=== PATIENT | female | born 1985 | race Caucasian/White ===

== ENCOUNTER 2016-08-24 08:12 | Emergency (ER) | payer BC ==
--- NOTE | 2016-08-24 11:20 | RAD ---
Indication: Early with uncertain dates. Potential very light menses in June and July. Comparison: No relevant prior exams available on the [facility] for comparison. Technique: Transabdominal and transvaginal obstetrical ultrasound. Report: Single intrauterine gestation with mean gestational sac diameter of 0.99 cm corresponding to 5 weeks 5 days gestation. Solitary pole measuring 0.53 cm crown-rump length corresponding with 6 weeks 3 days gestation. Unremarkable 0.4 cm diameter yolk sac. movement and cardiac activity evident with heart rate equal to 120 bpm. No perigestational hemorrhage evident. No free fluid evident. 2.8 x 1.4 x 1.3 cm RIGHT ovary is unremarkable. 3.6 x 2.8 x 2.6 cm LEFT ovary is remarkable for a moderately well-circumscribed hypoechoic but not anechoic 2.2 x 1.9 x 1.7 cm lesion with peripheral vascularity most suspicious for a corpus luteum given the clinical context. No visualized extra ovarian adnexal region lesions evident. IMPRESSION: 1. Solitary grossly viable-appearing intrauterine gestation with ultrasound gestational age estimated at 6 weeks 1 day corresponding with AUA BRINDA of April 18, 2017. 2. Small probable corpus luteum at the LEFT ovary.
[2016-08-24 12:07] VITALS: BP 107/70
[2016-08-24 16:11] LABS: Hematocrit 42 % (35-47); Hemoglobin 13.8 g/dl (12.0-16.0); Mean Corpuscular HGB Conc 33 g/dl (31-36); Mean Corpuscular Hemoglobin 28 pg (27-31); Mean Corpuscular Volume 86 fL (80-97); Mean Platelet Volume 8 um3 (7.4-10.4); Red Blood Count 4.88 10^6/ul (4.0-5.4); Red Cell Distribution Width 14 % (10.5-15); White Blood Count 10.8 10^3/ul (3.5-10.8)
[2016-08-24 16:54] LABS: Albumin 4.8 g/dL (3.2-5.2); BUN/Creatinine Ratio 12.5 (8-20); Calcium 9.9 mg/dL (8.6-10.3); EGFR African American 141.1 (>60); EGFR Non-African American 109.7 (>60); Globulin 2.3 g/dL (2-4); Potassium 4.4 mmol/L (3.5-5.0); Total Bilirubin 0.8 mg/dL (0.2-1.0); Total Protein 7.1 g/dL (6.4-8.9)
[2016-08-24 17:40] LABS: Manual Entry Verification MD; Rapid HIV INT CONT QC Line Present; Rapid HIV Kit Lot# F308002
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
== END 2016-08-24 11:55 | disposition home or self-care (01) ==
LOC: UCEAST 08:12
DX: O26.891 Other specified pregnancy related conditions, first trimester (principal); Z3A.01 Less than 8 weeks gestation of pregnancy; M41.9 Scoliosis, unspecified; Z87.442 Personal history of urinary calculi
CPT/HCPCS: 36415; 76801; 80053; 81003; 84702; 85025; 86703; 86706; 86803; 87491; 87591; 99212; G0463

== ENCOUNTER 2016-08-28 11:04 | Emergency (ER) | payer BC ==
[2016-08-28 11:34] VITALS: BP 122/83
--- NOTE | 2016-08-28 11:52 | UC ---
Yasmeen Patino Alok, scribed for Jaya Okeefe MD on 08/28/16 at 1129 . - HPI Summary HPI Summary: 31F presents to [facility] with vaginal spotting three days ago as well as mid-back pain yesterday. Pt is 6 weeks 5 days GPA=1,0,0. Pt states she has not had any spotting today and states that her spotting 3 days ago was no heavy. Pt also notes lower abd cramping. Pt was last seen at [facility] 4 days ago where US was done in order to date . PMHx includes h/o kidney stones and scoliosis. Pt denies tobacco/ETOH. Pt has NKDA. - History of Current Complaint Stated Complaint: ,SPOTTING,BACK PAIN Time Seen by Provider: 08/28/16 11:22 Hx Obtained From: Patient Chief Complaint: Vaginal Bleeding Onset/Duration: Started Days Ago, Atraumatic, Resolved Timing: Lasting Hours Severity: Moderate Current Severity: Moderate Pain Intensity: 0 Location of Pain: Other: - Lower abd Character: Cramping Aggravating Factors: Nothing Alleviating Factors: Nothing Associated Signs and Symptoms: Positive: Back Pain, Vaginal Bleeding or Discharge - Assessment Hx Now: Yes Hx Hysterectomy: No - Allergies/Home Medications Allergies/Adverse Reactions: Allergies Allergy/AdvReac Type Severity Reaction Status Date / Time No Known Allergies Allergy Verified 08/28/16 11:28 Home Medications: Home Medications Multivit-Min W/Fe-FA [ and Iron] 1 tab PO DAILY 08/28/16 [ History Confirmed 08/28/16] PMH/Surg Hx/FS Hx/Imm Hx Endocrine/Hematology History: Denies: Hx Diabetes, Hx Thyroid Disease Cardiovascular History: Denies: Hx Hypertension Respiratory History: Denies: Hx Asthma, Hx Chronic Obstructive Pulmonary Disease (COPD) GI History: Denies: Hx Ulcer - Surgical History Surgery Procedure, Year, and Place: Stent placement. lithotripsy Infectious Disease History: Reports: History Other Infectious Disease - [place], lyme, HPV Denies: Hx Clostridium Difficile, Hx Hepatitis, Hx Human Immunodeficiency Virus (HIV), Hx of Known/Suspected MRSA, Hx Shingles, Hx Tuberculosis, Hx Known/ Suspected VRE, Hx Known/Suspected VRSA - Family History Known Family History: Positive: Diabetes, Other - [place]. Alzheimer's. Negative: Cardiac Disease - Social History Occupation: Employed Full-time Lives: With Family Alcohol Use: None Alcohol Amount: 2x's weekly Hx Substance Use: Yes Substance Use Type: Reports: Marijuana Substance Use Comment - Amount & Last Used: quit recently Hx Tobacco Use: No Smoking Status (MU): Never Smoked Tobacco Type: eCigarettes Have You Smoked in the Last Year: No Review of Systems Constitutional: Negative Gastrointestinal: Abdominal Pain Genitourinary: Other - vaginal spotting 3 days ago Musculoskeletal: Other: - back pain yesterday All Other Systems Reviewed And Are Negative: Yes Physical Exam - Physical Exam Triage Information Reviewed: Yes Vital Signs Reviewed: Yes Appearance: Positive: Well-Appearing, No Pain Distress Skin: Positive: Warm Head/Face: Positive: Normal Head/Face Inspection Eyes: Positive: EOMI ENT: Positive: Normal ENT inspection Respiratory/Lung Sounds: Positive: Clear to Auscultation, Breath Sounds Present Cardiovascular: Positive: Normal, RRR Abdomen Description: Positive: Nontender Musculoskeletal: Positive: Strength/ROM Intact Neurological: Positive: Normal, Sensory/Motor Intact, Alert, Oriented to Person Place, Time Psychiatric: Positive: Normal - Carlos Coma Scale Eye: 4 - Spontaneous Motor: 6 - Obeys Commands Verbal: 5 - Oriented Coma Scale Total: 15 Course/Dx - Course Course Of Treatment: DW Dr Santos and the patient is signing out AMA refusal of EMS transport for vaginal bleeding and painin pregancy. She says she is driving her self [place] [facility]. - Diagnoses Provider Diagnoses: , Bleeding - Provider Notifications Discussed Care Of Patient With: Dr. Santos (ED) @ 3266 - Discussed pt hx and AMA, and patient states she is going to ER by private car. Discharge - Discharge Plan Condition: Good Disposition: AGAINST MEDICAL ADVICE The documentation as recorded by the Yasmeen velasquez Alok accurately reflects the service I personally performed and the decisions made by me, Jaya Okeefe MD.
== END 2016-08-28 11:53 | disposition left against medical advice (07) ==
LOC: UCEAST 11:04
DX: O20.9 Hemorrhage in early pregnancy, unspecified (principal); Z3A.01 Less than 8 weeks gestation of pregnancy
CPT/HCPCS: 99212; G0463

== ENCOUNTER 2016-08-28 12:05 | Emergency (ER) | payer BC ==
[2016-08-28 14:41] LABS: Hematocrit 42 % (35-47); Mean Corpuscular HGB Conc 34 g/dl (31-36); Mean Corpuscular Hemoglobin 29 pg (27-31); Mean Corpuscular Volume 86 fL (80-97); Mean Platelet Volume 8 um3 (7.4-10.4); Red Blood Count 4.87 10^6/ul (4.0-5.4); Red Cell Distribution Width 14 % (10.5-15); White Blood Count 8.8 10^3/ul (3.5-10.8)
[2016-08-28 14:56] LABS: Albumin 4.4 g/dL (3.2-5.2); BUN/Creatinine Ratio 13.1 (8-20); Calcium 9.1 mg/dL (8.6-10.3); EGFR African American 149.1 (>60); Globulin 2.3 g/dL (2-4); Potassium 3.8 mmol/L (3.5-5.0); Total Bilirubin 0.5 mg/dL (0.2-1.0); Total Protein 6.7 g/dL (6.4-8.9)
[2016-08-28 15:04] LABS: Urine Bacteria 1+ (Absent); Urine Bilirubin Negative (Negative); Urine Glucose Negative (Negative); Urine Nitrite Negative (Negative)
--- NOTE | 2016-08-28 15:47 | RAD ---
Indication: Vaginal bleeding. . Real-time sonography of the was performed. There is a single intrauterine gestation with a crown-rump length of 9 mm. This corresponds to gestational age of 6 weeks 6 days. heart activity is noted at 129 bpm. Yolk sac is identified. Gestational sac size measures 11 mm. This corresponds to gestational age of 5 weeks 6 days. The composite gestational age is 6 weeks 3 days. Estimated date of delivery is April 20, 2017. There is an arcuate type uterus. Right ovary measures 2.9 x 1.2 x 1.7 cm. Left ovary measures 3.3 x 2.1 x 2.8 cm. Hypoechoic lesion in the left ovary measures 2.1 x 2.1 x 1.6 cm represent corpus luteum. IMPRESSION: Single intrauterine gestation with a gestational age of 6 weeks 3 days. Estimated date of delivery is April 20, 2017. There is an arcuate type endometrium and uterus noted. Likely Left corpus luteum measuring up to 2.1 cm.
[2016-08-28 16:37] VITALS: BP 112/57
--- NOTE | 2016-08-28 17:56 | ED ---
Matthew Patino Billy, scribed for Luisito Santos MD on 08/28/16 at 1426 . - HPI Summary HPI Summary: Patient is a 31 year-old female coming to [facility] for evaluation of several -related complaints. She states that 3 days ago, she felt lightheaded and near-syncopal. She also reports "spasms" in the right-side of her abdomen. She has had intermittent mid-back pain as well. Patient reports one episode of light vaginal spotting 2 days ago. She reports no breast tenderness today. A0. LMP 07/05/16. - History of Current Complaint Chief Complaint: EDOBProblems Stated Complaint: 6 WEEKS PREGRENT/SPOTTING Time Seen by Provider: 08/28/16 14:02 Hx Obtained From: Patient Chief Complaint: Pain, Vaginal Bleeding Onset/Duration: Started Days Ago Timing: Intermittent Severity: Moderate Current Severity: Moderate Location of Pain: Right Side Character: Other: - "spasms" Aggravating Factors: Nothing Alleviating Factors: Nothing Associated Signs and Symptoms: Positive: Back Pain, Vaginal Bleeding or Discharge - Assessment Hx Now: Yes Hx Hysterectomy: No - Allergies/Home Medications Allergies/Adverse Reactions: Allergies Allergy/AdvReac Type Severity Reaction Status Date / Time No Known Allergies Allergy Verified 08/28/16 11:28 PMH/Surg Hx/FS Hx/Imm Hx Endocrine/Hematology History: Denies: Hx Diabetes, Hx Thyroid Disease Cardiovascular History: Denies: Hx Hypertension Respiratory History: Denies: Hx Asthma, Hx Chronic Obstructive Pulmonary Disease (COPD) GI History: Denies: Hx Ulcer - Surgical History Surgery Procedure, Year, and Place: Stent placement. lithotripsy Infectious Disease History: No Infectious Disease History: Reports: History Other Infectious Disease - [place], lyme, HPV Denies: Hx Clostridium Difficile, Hx Hepatitis, Hx Human Immunodeficiency Virus (HIV), Hx of Known/Suspected MRSA, Hx Shingles, Hx Tuberculosis, Hx Known/ Suspected VRE, Hx Known/Suspected VRSA, Traveled Outside the [place] in Last 30 Days - Family History Known Family History: Positive: Diabetes, Other - [place]. Alzheimer's. Negative: Cardiac Disease - Social History Alcohol Use: None Alcohol Amount: 2x's weekly Hx Substance Use: Yes Substance Use Type: Reports: Marijuana Substance Use Comment - Amount & Last Used: quit recently Hx Tobacco Use: No Smoking Status (MU): Never Smoked Tobacco Type: [place] Have You Smoked in the Last Year: No Review of Systems Genitourinary: Other - vaginal spotting Musculoskeletal: Other - back pain All Other Systems Reviewed And Are Negative: Yes Physical Exam - Summary Physical Exam Summary: The patient is well-nourished in no acute distress and in no acute pain. The skin is warm and dry and skin color reflects adequate perfusion. HEENT: The head is normocephalic and atraumatic. The pupils are equal and reactive. The conjunctivae are clear and without drainage. Nares are patent and without drainage. Mouth reveals moist mucous membranes and the throat is without erythema and exudate. The external ears are intact. The ear canals are patent and without drainage. The tympanic membranes are intact. Neck is supple with full range of motion and non-tender. There are no carotid bruits. There is no neck vein distension. Respiratory: Chest is non-tender. Lungs are clear to auscultation and breath sounds are symmetrical and equal. Cardiovascular: Hear is regular rate and rhythm. There is no murmur or rub auscultated. There is no peripheral edema and pulses are symmetrical and equal. Abdomen: The abdomen is soft and mildly tender to the RLQ. There are normal bowel sounds heard in all four quadrants and there is no organomegaly palpated. Musculoskeletal: There is no back pain noted. Extremities are non-tender with full range of motion. There is good capillary refill. There is no peripheral edema or calf tenderness elicited. Neurological: Patient is alert and oriented to person, place and time. The patient has symmetrical motor strength in all four extremities. Cranial nerves are grossly intact. Deep tendon reflexes are symmetrical and equal in all four extremities. Psychiatric: The patient exhibits mild anxiety. - Physical Exam Triage Information Reviewed: Yes Vital Signs On Initial Exam: Initial Vital Signs Temp 99.1 F 08/28/16 12:13 Pulse 86 08/28/16 12:13 Resp 18 08/28/16 12:13 BP 139/69 08/28/16 12:13 Pulse Ox 98 08/28/16 12:13 Vital Signs Reviewed: Yes Diagnostics - Vital Signs Vital Signs Temp Pulse Resp BP Pulse Ox 08/28/16 12:17 97.2 F 86 18 139/69 98 08/28/16 12:13 99.1 F 86 18 139/69 98 - Laboratory Lab Results: Lab Results 08/28/16 08/28/16 08/28/16 Range/Units 14:30 14:30 14:30 WBC 8.8 (3.5-10.8) 10^3/ul RBC 4.87 (4.0-5.4) 10^6/ul Hgb 14.0 (12.0-16.0) g/dl Hct 42 (35-47) % MCV 86 (80-97) fL MCH 29 (27-31) pg MCHC 34 (31-36) g/dl RDW 14 (10.5-15) % Plt Count 262 (150-450) 10^3/ul MPV 8 (7.4-10.4) um3 Neut % (Auto) 55.9 (38-83) % Lymph % (Auto) 34.9 (25-47) % [place] % (Auto) 6.8 (1-9) % Eos % (Auto) 1.3 (0-6) % Baso % (Auto) 1.1 (0-2) % Absolute Neuts (auto) 4.9 (1.5-7.7) 10^3/ul Absolute Lymphs (auto) 3.1 (1.0-4.8) 10^3/ul Absolute Monos (auto) 0.6 (0-0.8) 10^3/ul Absolute Eos (auto) 0.1 (0-0.6) 10^3/ul Absolute Basos (auto) 0.1 (0-0.2) 10^3/ul Absolute Nucleated RBC 0.01 10^3/ul Nucleated RBC % 0.1 Sodium 134 (133-145) mmol/L Potassium 3.8 (3.5-5.0) mmol/L Chloride 103 (101-111) mmol/L Carbon Dioxide 25 (22-32) mmol/L Anion Gap 6 (2-11) mmol/L BUN 8 (6-24) mg/dL Creatinine 0.61 (0.51-0.95) mg/dL Est GFR ( Amer) 149.1 (>60) Est GFR (Non-Af Amer) 116.0 (>60) BUN/Creatinine Ratio 13.1 (8-20) Glucose 103 H (70-100) mg/dL Calcium 9.1 (8.6-10.3) mg/dL Total Bilirubin 0.50 (0.2-1.0) mg/dL AST 16 (13-39) U/L ALT 13 (7-52) U/L Alkaline Phosphatase 42 (34-104) U/L Total Protein 6.7 (6.4-8.9) g/dL Albumin 4.4 (3.2-5.2) g/dL Globulin 2.3 (2-4) g/dL Albumin/Globulin Ratio 1.9 (1-3) Beta HCG, Quant 7691.00 mIU/mL Urine Color Urine Appearance Urine pH (5-9) Ur Specific [place] (1.010-1.030) Urine Protein (Negative) Urine Ketones (Negative) Urine Blood (Negative) Urine Nitrate (Negative) Urine Bilirubin (Negative) Urine Urobilinogen (Negative) Ur Leukocyte Esterase (Negative) Urine WBC (Auto) (Absent) Urine RBC (Auto) (Absent) Ur Squamous Epith Cells (Absent) Urine Bacteria (Absent) Urine Glucose (Negative) Blood Type O Positive Antibody Screen Negative 08/28/16 Range/Units 14:45 WBC (3.5-10.8) 10^3/ul RBC (4.0-5.4) 10^6/ul Hgb (12.0-16.0) g/dl Hct (35-47) % MCV (80-97) fL MCH (27-31) pg MCHC (31-36) g/dl RDW (10.5-15) % Plt Count (150-450) 10^3/ul MPV (7.4-10.4) um3 Neut % (Auto) (38-83) % Lymph % (Auto) (25-47) % [place] % (Auto) (1-9) % Eos % (Auto) (0-6) % Baso % (Auto) (0-2) % Absolute Neuts (auto) (1.5-7.7) 10^3/ul Absolute Lymphs (auto) (1.0-4.8) 10^3/ul Absolute Monos (auto) (0-0.8) 10^3/ul Absolute Eos (auto) (0-0.6) 10^3/ul Absolute Basos (auto) (0-0.2) 10^3/ul Absolute Nucleated RBC 10^3/ul Nucleated RBC % Sodium (133-145) mmol/L Potassium (3.5-5.0) mmol/L Chloride (101-111) mmol/L Carbon Dioxide (22-32) mmol/L Anion Gap (2-11) mmol/L BUN (6-24) mg/dL Creatinine (0.51-0.95) mg/dL Est GFR ( Amer) (>60) Est GFR (Non-Af Amer) (>60) BUN/Creatinine Ratio (8-20) Glucose (70-100) mg/dL Calcium (8.6-10.3) mg/dL Total Bilirubin (0.2-1.0) mg/dL AST (13-39) U/L ALT (7-52) U/L Alkaline Phosphatase (34-104) U/L Total Protein (6.4-8.9) g/dL Albumin (3.2-5.2) g/dL Globulin (2-4) g/dL Albumin/Globulin Ratio (1-3) Beta HCG, Quant mIU/mL Urine Color Straw Urine Appearance Clear Urine pH 7.0 (5-9) Ur Specific [place] 1.005 L (1.010-1.030) Urine Protein Negative (Negative) Urine Ketones Negative (Negative) Urine Blood 2+ H (Negative) Urine Nitrate Negative (Negative) Urine Bilirubin Negative (Negative) Urine Urobilinogen Negative (Negative) Ur Leukocyte Esterase Negative (Negative) Urine WBC (Auto) Trace(0-5/hpf) (Absent) Urine RBC (Auto) Trace(0-2/hpf) (Absent) Ur Squamous Epith Cells Present H (Absent) Urine Bacteria 1+ H (Absent) Urine Glucose Negative (Negative) Blood Type Antibody Screen Result Diagrams: 08/28/16 14:30 08/28/16 14:30 Lab Statement: Any lab studies that have been ordered have been reviewed, and results considered in the medical decision making process. - Ultrasound No standard instances Ultrasound Interpretation Completed By: Radiologist - Transvaginal US: Single intrauterine gestation with a gestational age of 6 weeks 3 days. Estimated date of delivery is April 20, 2017. There is an arcuate type endometrium and uterus noted. Likely Left corpus luteum measuring up to 2.1 cm. Re-Evaluation - Re-Evaluation First Eval Re-Evaluation Time: 16:17 Comment: Labs and imaging reviewed with the patient. Course/Dx - Course Assessment/Plan: 31 year-old female coming to the ED for evaluation of back pain , lightheadedness, and vaginal spotting in the last few days. She is 6 weeks . She was sent from [facility] [place] further [place]. Transvaginal ultrasound shows: "Single intrauterine gestation with a gestational age of 6 weeks 3 days. Estimated date of delivery is April 20, 2017. There is an arcuate type endometrium and uterus noted. Likely Left corpus luteum measuring up to 2.1 cm." These findings were reviewed with the patient. She will be discharged home to follow up with her PCP. - Differential Diagnosis/HQI/PQRI: Incomplete , Missed , Spontaneous , Threatened , Early - Diagnoses Provider Diagnoses: Intrauterine Discharge - Discharge Plan Condition: Stable Disposition: HOME Patient Education Materials: (ED) Referrals: [facility] REFERRAL [Outside] The documentation as recorded by the Matthew velasquez Billy accurately reflects the service I personally performed and the decisions made by me, Luisito Santos MD.
== END 2016-08-28 16:37 | disposition home or self-care (01) ==
LOC: ED 12:05
DX: O20.9 Hemorrhage in early pregnancy, unspecified (principal); M54.9 Dorsalgia, unspecified; Z3A.01 Less than 8 weeks gestation of pregnancy
CPT/HCPCS: 36415; 76817; 80053; 81003; 81015; 84702; 85025; 86850; 86900; 86901; 87086; 99282

== ENCOUNTER → 2016-09-14 07:36 | Emergency (ER) | payer OTHER ==
[2016-09-14] MEDS: NS 0.9% 1000 ML* 2,000 ML IV ONE ×2 (08:28→09:36)
[2016-09-14 08:43] LABS: Hematocrit 40 % (35-47); Hemoglobin 13.3 g/dl (12.0-16.0); Mean Corpuscular HGB Conc 33 g/dl (31-36); Mean Corpuscular Hemoglobin 29 pg (27-31); Mean Corpuscular Volume 86 fL (80-97); Mean Platelet Volume 8 um3 (7.4-10.4); Red Blood Count 4.64 10^6/ul (4.0-5.4); Red Cell Distribution Width 14 % (10.5-15); White Blood Count 8.7 10^3/ul (3.5-10.8)
[2016-09-14 08:55] LABS: Albumin 4.3 g/dL (3.2-5.2); Calcium 8.9 mg/dL (8.6-10.3); EGFR Non-African American 118.2 (>60); Globulin 2.3 g/dL (2-4); Potassium 3.8 mmol/L (3.5-5.0); Total Bilirubin 0.4 mg/dL (0.2-1.0); Total Protein 6.6 g/dL (6.4-8.9)
--- NOTE | 2016-09-14 09:41 | RAD ---
INDICATION: , vaginal bleeding. COMPARISON: Comparison is made with a prior study from August 28, 2016. TECHNIQUE: Multiple real-time transabdominal and transvaginal images of the pelvis were obtained. FINDINGS: This exam demonstrates an early intrauterine . The pole measures 1.1 cm corresponding to an estimated gestational age of 7 weeks 2 days. There was cardiac and activity present on the prior study which is no longer present consistent with demise. The right ovary was not visualized. The left ovary measured 3.2 x 2.6 x 2.0 cm. There is vascular flow noted within the left ovary. There is a complex hypoechoic area present in the left ovary measured 2.0 x 1.9 x 1.5 cm most consistent with a complex cyst. No free intraperitoneal fluid is seen. IMPRESSION: EARLY INTRAUTERINE , THE HEARTBEAT IS NO LONGER VISUALIZED CONSISTENT WITH DEMISE.
[2016-09-14 09:54] LABS: Urine Bilirubin Negative (Negative); Urine Glucose Negative (Negative); Urine Nitrite Negative (Negative)
--- NOTE | 2016-09-14 11:20 | ED ---
Erick Patino Alfonso, scribed for Eliezer Patel MD on 09/14/16 at 0826 . - HPI Summary HPI Summary: This is a 31 year old patient [facility] c/o vaginal bleeding worse since yesterday. At 1400 yesterday, she noted light brown colored vaginal bleeding. Between 1600 and 1930 yesterday, she reports "overheating", nausea and lightheadedness that forced her to lie down. At 0500 this morning, she noted heavy spotting characterized by clotting dark blood with a slight pink coloring. She denies vomiting, dysuria, and fever. Symptoms aggravated and alleviated by nothing. She has had intermittent vaginal bleeding for the last 4 weeks. She presented to the ED for vaginal bleeding 3 weeks ago, but the recent bleeding has been different. She reports being for approximately 8 weeks. P:0 A:0. Last saw her OBGYN in [facility] 6 days ago. The patient reports taking her vitamins. LNMP on July 05. PMHx of chronic upper back pain and 26 degree curve scoliosis. - History of Current Complaint Chief Complaint: EDVaginalBleeding Stated Complaint: 8WKS PREG/VAG BLEEDING Time Seen by Provider: 09/14/16 07:51 Hx Obtained From: Patient Chief Complaint: Vaginal Bleeding Onset/Duration: Started Days Ago - Yesterday, Still Present Timing: Constant Severity: Mild Current Severity: Mild Pain Intensity: 0 Location of Pain: None Aggravating Factors: Nothing Alleviating Factors: Nothing Associated Signs and Symptoms: Positive: Back Pain - Chronic, Nausea, Vaginal Bleeding or Discharge - At 0500 this morning, she noted heavy spotting of clotting dark blood with a slight pink coloring.. Negative: Fever, Vomiting - Assessment Hx Now: Yes Hx Hysterectomy: No - Allergies/Home Medications Allergies/Adverse Reactions: Allergies Allergy/AdvReac Type Severity Reaction Status Date / Time No Known Allergies Allergy Verified 08/28/16 11:28 PMH/Surg Hx/FS Hx/Imm Hx Endocrine/Hematology History: Denies: Hx Diabetes, Hx Thyroid Disease Cardiovascular History: Denies: Hx Hypertension Respiratory History: Denies: Hx Asthma, Hx Chronic Obstructive Pulmonary Disease (COPD) GI History: Denies: Hx Ulcer - Surgical History Surgery Procedure, Year, and Place: Stent placement. lithotripsy Infectious Disease History: No Infectious Disease History: Reports: History Other Infectious Disease - [place], lyme, HPV Denies: Hx Clostridium Difficile, Hx Hepatitis, Hx Human Immunodeficiency Virus (HIV), Hx of Known/Suspected MRSA, Hx Shingles, Hx Tuberculosis, Hx Known/ Suspected VRE, Hx Known/Suspected VRSA, Traveled Outside the [place] in Last 30 Days - Family History Known Family History: Positive: Diabetes, Other - CA. Alzheimer's. Negative: Cardiac Disease - Social History Alcohol Use: None Alcohol Amount: 2x's weekly Hx Substance Use: Yes Substance Use Type: Reports: Marijuana Substance Use Comment - Amount & Last Used: quit recently Hx Tobacco Use: No Smoking Status (MU): Never Smoked Tobacco Type: eCigarettes Have You Smoked in the Last Year: No Review of Systems Positive: Other - "overheating", and lightheadedness. Negative: Fever Eyes: Negative ENT: Negative Cardiovascular: Negative Respiratory: Negative Positive: Nausea. Negative: Vomiting Positive: other - vaginal bleeding . Negative: dysuria Musculoskeletal: Negative Skin: Negative Neurological: Negative Psychological: Normal All Other Systems Reviewed And Are Negative: Yes Physical Exam - Summary Physical Exam Summary: Gen: well-appearing, no pain distress Skin: warm, color, dry Head: normal Eyes: EOMI, RIGO ENT: normal Neck: supple, nontender Resp: CTA, breath sounds present Cardio: RRR Abd: soft, nontender Back: Scoliosis, back nontender to percussion. Bowel: present Musc: normal, strength/ROM intact Neuro: normal, sensory/motor intact, A&O x3 Psych: affect/mood appropriate - Physical Exam Triage Information Reviewed: Yes Vital Signs Reviewed: Yes Diagnostics - Vital Signs Vital Signs Temp Pulse Resp BP Pulse Ox 09/14/16 07:40 97.4 F 75 20 122/57 100 09/14/16 07:38 98.1 F 70 20 100 - Laboratory Lab Results: Lab Results 09/14/16 09/14/16 09/14/16 Range/Units 08:30 08:30 08:30 WBC 8.7 (3.5-10.8) 10^3/ul RBC 4.64 (4.0-5.4) 10^6/ul Hgb 13.3 (12.0-16.0) g/dl Hct 40 (35-47) % MCV 86 (80-97) fL MCH 29 (27-31) pg MCHC 33 (31-36) g/dl RDW 14 (10.5-15) % Plt Count 222 (150-450) 10^3/ul MPV 8 (7.4-10.4) um3 Neut % (Auto) 58.9 (38-83) % Lymph % (Auto) 30.8 (25-47) % [place] % (Auto) 7.4 (1-9) % Eos % (Auto) 1.9 (0-6) % Baso % (Auto) 1.0 (0-2) % Absolute Neuts (auto) 5.1 (1.5-7.7) 10^3/ul Absolute Lymphs (auto) 2.7 (1.0-4.8) 10^3/ul Absolute Monos (auto) 0.6 (0-0.8) 10^3/ul Absolute Eos (auto) 0.2 (0-0.6) 10^3/ul Absolute Basos (auto) 0.1 (0-0.2) 10^3/ul Absolute Nucleated RBC 0 10^3/ul Nucleated RBC % 0 INR (Anticoag Therapy) 0.89 (0.89-1.11) APTT 31.3 (26.0-36.3) seconds Sodium 133 (133-145) mmol/L Potassium 3.8 (3.5-5.0) mmol/L Chloride 105 (101-111) mmol/L Carbon Dioxide 25 (22-32) mmol/L Anion Gap 3 (2-11) mmol/L BUN 18 (6-24) mg/dL Creatinine 0.60 (0.51-0.95) mg/dL Est GFR ( Amer) 152.0 (>60) Est GFR (Non-Af Amer) 118.2 (>60) BUN/Creatinine Ratio 30.0 H (8-20) Glucose 98 (70-100) mg/dL Calcium 8.9 (8.6-10.3) mg/dL Total Bilirubin 0.40 (0.2-1.0) mg/dL AST 19 (13-39) U/L ALT 15 (7-52) U/L Alkaline Phosphatase 44 (34-104) U/L Total Protein 6.6 (6.4-8.9) g/dL Albumin 4.3 (3.2-5.2) g/dL Globulin 2.3 (2-4) g/dL Albumin/Globulin Ratio 1.9 (1-3) Beta HCG, Quant 6153.00 mIU/mL Urine Color Urine Appearance Urine pH (5-9) Ur Specific [place] (1.010-1.030) Urine Protein (Negative) Urine Ketones (Negative) Urine Blood (Negative) Urine Nitrate (Negative) Urine Bilirubin (Negative) Urine Urobilinogen (Negative) Ur Leukocyte Esterase (Negative) Urine Glucose (Negative) 09/14/16 Range/Units 09:40 WBC (3.5-10.8) 10^3/ul RBC (4.0-5.4) 10^6/ul Hgb (12.0-16.0) g/dl Hct (35-47) % MCV (80-97) fL MCH (27-31) pg MCHC (31-36) g/dl RDW (10.5-15) % Plt Count (150-450) 10^3/ul MPV (7.4-10.4) um3 Neut % (Auto) (38-83) % Lymph % (Auto) (25-47) % [place] % (Auto) (1-9) % Eos % (Auto) (0-6) % Baso % (Auto) (0-2) % Absolute Neuts (auto) (1.5-7.7) 10^3/ul Absolute Lymphs (auto) (1.0-4.8) 10^3/ul Absolute Monos (auto) (0-0.8) 10^3/ul Absolute Eos (auto) (0-0.6) 10^3/ul Absolute Basos (auto) (0-0.2) 10^3/ul Absolute Nucleated RBC 10^3/ul Nucleated RBC % INR (Anticoag Therapy) (0.89-1.11) APTT (26.0-36.3) seconds Sodium (133-145) mmol/L Potassium (3.5-5.0) mmol/L Chloride (101-111) mmol/L Carbon Dioxide (22-32) mmol/L Anion Gap (2-11) mmol/L BUN (6-24) mg/dL Creatinine (0.51-0.95) mg/dL Est GFR ( Amer) (>60) Est GFR (Non-Af Amer) (>60) BUN/Creatinine Ratio (8-20) Glucose (70-100) mg/dL Calcium (8.6-10.3) mg/dL Total Bilirubin (0.2-1.0) mg/dL AST (13-39) U/L ALT (7-52) U/L Alkaline Phosphatase (34-104) U/L Total Protein (6.4-8.9) g/dL Albumin (3.2-5.2) g/dL Globulin (2-4) g/dL Albumin/Globulin Ratio (1-3) Beta HCG, Quant mIU/mL Urine Color Straw Urine Appearance Clear Urine pH 7.0 (5-9) Ur Specific [place] 1.004 L (1.010-1.030) Urine Protein Negative (Negative) Urine Ketones Negative (Negative) Urine Blood Negative (Negative) Urine Nitrate Negative (Negative) Urine Bilirubin Negative (Negative) Urine Urobilinogen Negative (Negative) Ur Leukocyte Esterase Negative (Negative) Urine Glucose Negative (Negative) Result Diagrams: 09/14/16 08:30 09/14/16 08:30 Lab Statement: Any lab studies that have been ordered have been reviewed, and results considered in the medical decision making process. - Additional Comments Diagnostic Additional Comments: US : IMPRESSION: EARLY INTRAUTERINE , THE HEARTBEAT IS NO LONGER VISUALIZED CONSISTENT WITH DEMISE. Course/Dx - Course Course Of Treatment: NO CRITICAL CARE TIME. DISCUSSED WITH TANMAY ([phone]) , DR REBOLLAR'S NURSE (DR REBOLLAR WAS IN SURGERY). SHE STATED THEY SUSPECTED DEMISE ON THE 09/08/16 VISIT. DISCUSSED RESULTS WITH PATIENT/BOYFRIEND. DISCHARGE HOME STABLE WITH F/U SCHEDULED FOR 09/16/16 AT 3:[address] REBOLLAR. Assessment/Plan: BLOOD TYPE O POSITIVE THEREFORE, NO RHO BELKYS. - Diagnoses Provider Diagnoses: Miscarriage - Provider Notifications Discussed Care Of Patient With: Son Rebollar MD - Spoke with Nurse Tanmay working for Son Rebollar (OBGYN) Time Discussed With Above Provider: 10:29 Instructed by Provider To: Other - The office reports seeing the patient on September 08, and having caution for demise. They have scheduled a consulation of September 16 at 1550. Discharge - Discharge Plan Condition: Stable Disposition: HOME Patient Education Materials: Miscarriage (ED) Referrals: No Primary Care Phys,NOPCP [Primary Care Provider] - Additional Instructions: FOLLOW UP WITH DR REBOLLAR ON 09/16/16, AT 3:50PM. RETURN TO THE EMERGENCY DEPARTMENT FOR ANY WORSENING OF YOUR CONDITION; EXCESSIVE BLEEDING, YOU FEEL LIKE PASSING OUT, YOU FEEL ILL OR QUESTIONS OR CONCERNS. The documentation as recorded by the Erick velasquez Alfonso accurately reflects the service I personally performed and the decisions made by me, Eliezer Patel MD.
[2016-09-14 12:00] VITALS: BP 118/80
== END | disposition home or self-care (01) ==
LOC: ED 07:36
DX: O03.9 Complete or unspecified spontaneous abortion without complication (principal); M54.9 Dorsalgia, unspecified; N93.9 Abnormal uterine and vaginal bleeding, unspecified; R11.0 Nausea
CPT/HCPCS: 36415; 76801; 80053; 81003; 84702; 85025; 85610; 85730; 99282

== ENCOUNTER 2016-09-16 04:55 | Emergency (ER) | payer OTHER ==
[2016-09-16] MEDS ORDERED: NS 0.9% 1000 ML* 1,000 ML IV ONE (05:15)
[2016-09-16 05:43] LABS: Hematocrit 41 % (35-47); Hemoglobin 13.3 g/dl (12.0-16.0); Mean Corpuscular HGB Conc 32 g/dl (31-36); Mean Corpuscular Hemoglobin 28 pg (27-31); Mean Corpuscular Volume 87 fL (80-97); Mean Platelet Volume 8 um3 (7.4-10.4); Red Blood Count 4.75 10^6/ul (4.0-5.4); Red Cell Distribution Width 14 % (10.5-15); White Blood Count 13.6 10^3/ul (3.5-10.8)
[2016-09-16 06:11] LABS: Albumin 4.4 g/dL (3.2-5.2); BUN/Creatinine Ratio 21.7 (8-20); Calcium 9.6 mg/dL (8.6-10.3); EGFR Non-African American 118.2 (>60); Globulin 2.3 g/dL (2-4); Potassium 4.2 mmol/L (3.5-5.0); Total Bilirubin 0.3 mg/dL (0.2-1.0); Total Protein 6.7 g/dL (6.4-8.9)
[2016-09-16] MEDS ORDERED: Morphine INJ* 2 MG/ML 1 ML SYRINGE IV ONE ×2 (06:17→10:02)
--- NOTE | 2016-09-16 06:30 | ED ---
Keyon Patino Benjamin, scribed for Son Solorio MD on 09/16/16 at 0547 . Back Pain - HPI Summary HPI Summary: 31yo female c/o bilateral lower back pain that wraps around to bilateral lower abdomen and down the legs for 2 days. Pain has been worsening throughout its course. Pt describes the pain as throbbing and aching that at times becomes intense and sharp. Also reports nausea. Pt has hx of kidney stones x4, but describes today's symptoms as different. Pt reports miscarriage in process. Hx includes kidney stones, depression, and scoliosis. FHx includes DM2, Alzheimer's , and CA. 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 - History of Current Complaint Chief Complaint: EDOBProblems Stated Complaint: LOWE BACK/HIP PAIN/VAG BLEED Time Seen by Provider: 09/16/16 05:34 Hx Obtained From: Patient, Family/Associate Professor Of Violin - partner Hx Last Menstrual Period: 07/05/16 Onset/Duration: Gradual Onset, Lasting Days - 2 days, Still Present Onset/Duration: Started Days Ago - 2 days, Still Present Timing: Constant Back Pain Location: Is Discrete @ - bilateral lower back Severity Initially: Moderate Severity Currently: Severe Pain Intensity: 10 Pain Scale Used: 0-10 Numeric Character: Sharp, Aching, Throbbing Aggravating Symptom(s): Nothing Alleviating Symptom(s): Nothing Associated Signs And Symptoms: Positive: Abdominal Pain - Allergies/Home Medications Allergies/Adverse Reactions: Allergies Allergy/AdvReac Type Severity Reaction Status Date / Time No Known Allergies Allergy Verified 08/28/16 11:28 PMH/Surg Hx/FS Hx/Imm Hx Endocrine/Hematology History: Denies: Hx Diabetes, Hx Thyroid Disease Cardiovascular History: Denies: Hx Hypertension Respiratory History: Denies: Hx Asthma, Hx Chronic Obstructive Pulmonary Disease (COPD) GI History: Denies: Hx Ulcer History: Reports: Hx Kidney Stones Musculoskeletal History: Reports: Hx Scoliosis Psychiatric History: Reports: Hx Depression - Surgical History Surgery Procedure, Year, and Place: Stent placement. lithotripsy Infectious Disease History: No Infectious Disease History: Reports: History Other Infectious Disease - [place], lyme, HPV Denies: Hx Clostridium Difficile, Hx Hepatitis, Hx Human Immunodeficiency Virus (HIV), Hx of Known/Suspected MRSA, Hx Shingles, Hx Tuberculosis, Hx Known/ Suspected VRE, Hx Known/Suspected VRSA, Traveled Outside the [place] in Last 30 Days - Family History Known Family History: Positive: None, Diabetes, Other - CA. Alzheimer's. Negative: Cardiac Disease, Hypertension - Social History Occupation: Employed Full-time Lives: With Family Alcohol Use: None Alcohol Amount: 2x's weekly Hx Substance Use: Yes Substance Use Type: Reports: Marijuana Substance Use Comment - Amount & Last Used: quit recently Hx Tobacco Use: No Smoking Status (MU): Never Smoked Tobacco Type: eCigarettes Have You Smoked in the Last Year: No Review of Systems Constitutional: Negative Eyes: Negative ENT: Negative Cardiovascular: Negative Respiratory: Negative Positive: Abdominal Pain - bilateral lower , Nausea Genitourinary: Negative Positive: Other - bilateral lower back pain; bilateral leg pain Skin: Negative Neurological: Negative Psychological: Normal All Other Systems Reviewed And Are Negative: Yes Physical Exam Triage Information Reviewed: Yes Vital Signs On Initial Exam: Initial Vitals Temp Pulse Resp BP Pulse Ox 98.9 F 101 22 120/74 97 09/16/16 04:59 09/16/16 04:59 09/16/16 04:59 09/16/16 04:59 09/16/16 04:59 Vital Signs Reviewed: Yes Appearance: Positive: Well-Appearing, No Pain Distress, Thin Skin: Positive: Warm Head/Face: Positive: Normal Head/Face Inspection Eyes: Positive: RIGO ENT: Positive: Hearing grossly normal Neck: Positive: Supple Respiratory/Lung Sounds: Positive: Clear to Auscultation, Breath Sounds Present Cardiovascular: Positive: RRR Abdomen Description: Positive: Nontender, No Organomegaly, Soft Bowel Sounds: Positive: Present Musculoskeletal: Positive: Strength/ROM Intact Neurological: Positive: Alert, Oriented to Person Place, Time Psychiatric: Positive: Affect/Mood Appropriate - Carlos Coma Scale Coma Scale Total: 15 Diagnostics - Vital Signs Vital Signs Temp Pulse Resp BP Pulse Ox 09/16/16 04:59 98.9 F 101 22 120/74 97 - Laboratory Lab Results: Lab Results 09/16/16 09/16/16 Range/Units 05:25 05:25 WBC 13.6 H (3.5-10.8) 10^3/ul RBC 4.75 (4.0-5.4) 10^6/ul Hgb 13.3 (12.0-16.0) g/dl Hct 41 (35-47) % MCV 87 (80-97) fL MCH 28 (27-31) pg MCHC 32 (31-36) g/dl RDW 14 (10.5-15) % Plt Count 233 (150-450) 10^3/ul MPV 8 (7.4-10.4) um3 Neut % (Auto) 65.9 (38-83) % Lymph % (Auto) 24.8 L (25-47) % Dale % (Auto) 6.6 (1-9) % Eos % (Auto) 2.0 (0-6) % Baso % (Auto) 0.7 (0-2) % Absolute Neuts (auto) 9.0 H (1.5-7.7) 10^3/ul Absolute Lymphs (auto) 3.4 (1.0-4.8) 10^3/ul Absolute Monos (auto) 0.9 H (0-0.8) 10^3/ul Absolute Eos (auto) 0.3 (0-0.6) 10^3/ul Absolute Basos (auto) 0.1 (0-0.2) 10^3/ul Absolute Nucleated RBC 0.01 10^3/ul Nucleated RBC % 0 Sodium 135 (133-145) mmol/L Potassium 4.2 (3.5-5.0) mmol/L Chloride 104 (101-111) mmol/L Carbon Dioxide 24 (22-32) mmol/L Anion Gap 7 (2-11) mmol/L BUN 13 (6-24) mg/dL Creatinine 0.60 (0.51-0.95) mg/dL Est GFR ( Amer) 152.0 (>60) Est GFR (Non-Af Amer) 118.2 (>60) BUN/Creatinine Ratio 21.7 H (8-20) Glucose 107 H (70-100) mg/dL Calcium 9.6 (8.6-10.3) mg/dL Total Bilirubin 0.30 (0.2-1.0) mg/dL AST 21 (13-39) U/L ALT 18 (7-52) U/L Alkaline Phosphatase 76 (34-104) U/L Total Protein 6.7 (6.4-8.9) g/dL Albumin 4.4 (3.2-5.2) g/dL Globulin 2.3 (2-4) g/dL Albumin/Globulin Ratio 1.9 (1-3) Beta HCG, Quant Pending Result Diagrams: 09/16/16 05:25 09/16/16 05:25 Lab Statement: Any lab studies that have been ordered have been reviewed, and results considered in the medical decision making process. Back Pain Course/Dx - Diagnoses Provider Diagnoses: Miscarried within last 12 months Discharge - Discharge Plan Condition: Stable Disposition: HOME Prescriptions: oxyCODONE/Acetamin 5/325 MG* [Percocet 5/325 TAB*] 1 tab PO Q6H PRN #12 tab MDD 4 tabs /day PRN Reason: Pain Patient Education Materials: Miscarriage (ED) Referrals: Son Rebollar MD [Primary Care Provider] - The documentation as recorded by the Keyon velasquez Benjamin accurately reflects the service I personally performed and the decisions made by , Son Solorio MD.
[2016-09-16 07:14] LABS: Urine Bacteria Absent (Absent); Urine Bilirubin Negative (Negative); Urine Glucose Negative (Negative); Urine Nitrite Negative (Negative)
--- NOTE | 2016-09-16 08:33 | RAD ---
HISTORY: Cramping pelvic pain, COMPARISONS: September 14, 2016 TECHNIQUE: Multiple transverse and longitudinal ultrasound images were obtained of the pelvis using grayscale, color Doppler, and spectral Doppler imaging using the transabdominal transducer. FINDINGS: UTERUS: The uterus measures 9.1 x 4.8 x 6.1 cm. The uterus is normal in shape, size, contour, and echotexture. ENDOMETRIUM: There is fluid within the endometrial cavity and endocervical canal. The intrauterine gestation is no longer visualized.. The endometrium measures 0.8 cm in thickness. CUL-DE-SAC: There is no free fluid within the cul-de-sac. RIGHT OVARY: The right ovary measures 2.9 x 1.3 x 1.7 cm. Normal arterial and venous waveforms are identifiable within the ovary on spectral Doppler imaging. LEFT OVARY: The left ovary measures 2.5 x 2.2 x 0.5 cm. Normal arterial and venous waveforms are identifiable within the ovary on spectral Doppler imaging. There is a hypoechoic lesion measuring 1.2 cm in size, decreased in the previous examination BLADDER: The visualized bladder is unremarkable. IMPRESSION: NO INTRAUTERINE GESTATION IS VISUALIZED ON THE CURRENT EXAMINATION, CONSISTENT WITH MISSED GIVEN THE PREVIOUS STUDY. THERE IS FLUID WITHIN THE ENDOMETRIAL CAVITY. THERE IS NO HYPERVASCULAR TISSUE TO SUGGEST RETAINED PRODUCTS OF CONCEPTION
[2016-09-16 11:14] VITALS: BP 103/73
--- NOTE | 2016-09-17 07:23 | ED ---
I, George Cobos, scribed for Jaya Kent MD on 09/16/16 at 1005 . Progress - Progress Note Progress Note: The patient was signed out by Dr. Solorio to review pelvis US. Results are given in the impression below. Currently, the patient is feeling more comfortable, after taking 2mg of morphine. I discussed the patients care with Dr. Rebollar (MANAGER COUNCIL) and he requested discharge. The patient will follow up with Dr. rebollar this afternoon. She does not have any cramping at this point but still has a small amount of bleeding. 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 Patient is hemodynamically stable. She will be discharged home with follow up with Dr. Rebollar. /PELVIS US IMPRESSION: NO INTRAUTERINE GESTATION IS VISUALIZED ON THE CURRENT EXAMINATION, CONSISTENT WITH MISSED GIVEN THE PREVIOUS STUDY. THERE IS FLUID WITHIN THE ENDOMETRIAL CAVITY. THERE IS NO HYPERVASCULAR TISSUE TO SUGGEST RETAINED PRODUCTS OF CONCEPTION Course/Dx - Diagnoses Provider Diagnoses: Miscarriage The documentation as recorded by the christinaibPapito otto Aidan accurately reflects the service I personally performed and the decisions made by me, Jaya Kent MD.
== END 2016-09-16 11:14 | disposition home or self-care (01) ==
LOC: ED 04:55
DX: O03.9 Complete or unspecified spontaneous abortion without complication (principal); M54.5 Low back pain; R10.9 Unspecified abdominal pain
CPT/HCPCS: 36415; 76801; 80053; 81003; 81015; 84702; 85025; 96374; J2270

== ENCOUNTER 2017-06-22 18:57 | Emergency (ER) | payer BC, OTHER ==
[2017-06-22 19:37] VITALS: BP 109/58
--- NOTE | 2017-06-22 21:41 | UC ---
Altaf Patino Nilda, scribed for Jaya Kent MD on 06/22/17 at 2039 . Complaint Female HPI - HPI Summary HPI Summary: This patient is a 32 year old F presenting to [facility] accompanied by with a chief complaint of constant diffuse abd cramping for the past 3 days. The patient rates the pain 6/10 in severity. Symptoms aggravated and alleviated by nothing. Patient reports dysuria and urinary frequency, but denies vaginal discharge or bleeding. Patient states she is 19 weeks (Grav:2 and Para: 0). PMHx frequent UTI. LNMP 07/05/16. - History Of Current Complaint Chief Complaint: UCGU Stated Complaint: UTI Time Seen by Provider: 06/22/17 18:59 Hx Obtained From: Patient Hx Last Menstrual Period: 07/05/16 Onset/Duration: Sudden Onset Timing: Constant Severity Currently: Moderate Pain Intensity: 6 Pain Scale Used: 0-10 Numeric Character: Cramping Aggravating Factor(s): Nothing Alleviating Factor(s): Nothing Associated Signs And Symptoms: Negative: Vaginal Bleeding/Discharge, Vaginal Discharge Related Hx: - 2, Para - 0 - Allergies/Home Medications Allergies/Adverse Reactions: Allergies Allergy/AdvReac Type Severity Reaction Status Date / Time lactose Allergy See Comment Verified 06/22/17 19:37 Home Medications: Home Medications Calcium Carbonate/Vitamin D3 [Calcium 500 + Vit D Caplet] 1 each PO DAILY [History Confirmed 06/22/17] PMH/Surg Hx/FS Hx/Imm Hx GI/ History: Other Other GI/ History: frequent UTI Psychological History: Depression - Surgical History Surgical History: Yes Surgery Procedure, Year, and Place: Stent placement. lithotripsy - Family History Known Family History: Positive: Diabetes, Other - CA. Alzheimer's. Negative: Cardiac Disease, Hypertension - Social History Alcohol Use: None Alcohol Amount: 2x's weekly Substance Use Type: None Substance Use Comment - Amount & Last Used: quit recently Smoking Status (MU): Never Smoked Tobacco Type: eCigarettes Have You Smoked in the Last Year: No Review of Systems Gastrointestinal: Abdominal Pain - cramping Genitourinary: Other - dysuria and urinary frequency; negative vaginal discharge or bleeding All Other Systems Reviewed And Are Negative: Yes Physical Exam - Summary Physical Exam Summary: VITAL SIGNS: Reviewed. GENERAL: Patient is a well developed and nourished F who is lying comfortable in the stretcher. Patient is not in any acute respiratory distress. HEAD AND FACE: Normocephalic EYES: PERRLA, EOMI x 2. EARS: Hearing grossly intact. MOUTH: Oropharynx within normal limits. NECK: Supple, trachea is midline, no adenopathy, no JVD, no carotid bruit. CHEST: Symmetric, no tenderness at palpation LUNGS: Clear to auscultation bilaterally. No wheezing or crackles. CVS: Regular rate and rhythm, S1 and S2 present, no murmurs or gallops appreciated. ABDOMEN: Soft, non-tender. Bowel sounds are normal. No abdominal abnormal pulsations. BACK: No CVA tenderness bilat EXTREMITIES: Full ROM in all major joints, no edema, no cyanosis or clubbing. NEURO: Alert and oriented x 3. No acute neurological deficits. Speech is normal and follows commands. SKIN: Dry and warm Triage Information Reviewed: Yes Vital Signs: Initial Vital Signs Temp 99.6 F 06/22/17 19:31 Pulse 68 06/22/17 19:31 Resp 16 06/22/17 19:31 BP 109/58 06/22/17 19:31 Pulse Ox 100 06/22/17 19:31 Vital Signs Reviewed: Yes Complaint Female Dx - Course Course Of Treatment: This patient is a 32 year old F presenting to [facility] accompanied by with a chief complaint of constant diffuse abd cramping for the past 3 days. The patient rates the pain 6/10 in severity. Symptoms aggravated and alleviated by nothing. Patient reports dysuria and urinary frequency, but denies vaginal discharge or bleeding. Patient states she is 19 weeks (Grav:2 and Para:0). PMHx frequent UTI. LNMP 07/05/16. Patient continue to have a left flank pain with mild Left CVAT. She has hx of Kidney stones. UA negative for UTI. She has no abdominal cramping or vaginal bleeding. However I believe patient needs further work up thus, she will be discharge to the ED for further work up. She understands and agrees with plan. will drive patient to the ED. She declined ambulance. Patient is hemodynamically stable an A+O x 3. - Differential Dx/Diagnosis Differential Diagnosis/HQI/PQRI: Ovarian Cyst, , Renal Colic, Ureteral Stone, Urinary Tract Infection Provider Diagnoses: Abd cramping, flank pain, and hematuria, Discharge - Sign-Out/Discharge Documenting (check all that apply): Discharge - Discharge Plan Condition: Stable Disposition: HOME Patient Education Materials: Hematuria (ED), Abdominal Pain (ED), Flank Pain ( ED) Referrals: Vijay Cedillo MD [Primary Care Provider] - Additional Instructions: Patient will be discharged to the ED for further work up and management. - Billing Disposition and Condition Condition: STABLE Disposition: HOME The documentation as recorded by the Altaf velasquez Nilda accurately reflects the service I personally performed and the decisions made by Donte ness Walter, MD.
== END 2017-06-22 20:15 | disposition home or self-care (01) ==
LOC: UCEAST 18:57
DX: O26.892 Other specified pregnancy related conditions, second trimester (principal); R10.84 Generalized abdominal pain; R31.9 Hematuria, unspecified; R30.0 Dysuria; R35.0 Frequency of micturition; Z3A.19 19 weeks gestation of pregnancy; F32.9 Major depressive disorder, single episode, unspecified; Z87.440 Personal history of urinary (tract) infections; Z87.442 Personal history of urinary calculi
CPT/HCPCS: 81003; 99212; G0463

== ENCOUNTER 2017-06-22 20:35 | Emergency (ER) | payer BC, OTHER ==
[2017-06-22 22:31] LABS: Hematocrit 38 % (35-47); Mean Corpuscular HGB Conc 34 g/dl (31-36); Mean Corpuscular Hemoglobin 30 pg (27-31); Mean Corpuscular Volume 87 fL (80-97); Mean Platelet Volume 8 um3 (7.4-10.4); Platelet Count 228 10^3/ul (150-450); Red Blood Count 4.39 10^6/ul (4.0-5.4); Red Cell Distribution Width 14 % (10.5-15); White Blood Count 13.4 10^3/ul (3.5-10.8)
[2017-06-22 22:47] LABS: EGFR Non-African American 119.7 (>60)
[2017-06-22 22:52] LABS: Urine Appearance Clear; Urine Blood 1+ (Negative); Urine Color Colorless; Urine Ketones Negative (Negative); Urine Protein Negative (Negative); Urine Specific Gravity 1.001 (1.010-1.030); Urine Urobilinogen Negative (Negative)
--- NOTE | 2017-06-23 00:14 | ED ---
IYee Thomas, scribed for Dudley Fine MD on 06/23/17 at 0009 . Progress - Progress Note Progress Note: The patient is a sign out from Dr. Rodgers pending renal ultrasound. Ultrasound Renal: Interpreted by radiologist. Impression: Right renal calculi are identified. There is moderate right hydronephrosis. This could be caused either by a right ureteral stone (not included on the scan) or could be caused by the gravid uterus pressing onto the ureter. Left kidney measures 12.3 cm x 4.9 cm x 5.5. cm. Multiple left renal calculi are identified. However there is no left hydronephrosis. Bilateral jets are noted streaming into the urinary bladder. The patient will be discharged home. I recommended Tylenol for the pain. She will follow up with her OB tomorrow. Course/Dx - Diagnoses Provider Diagnoses: Left flank pain Discharge - Sign-Out/Discharge Documenting (check all that apply): Receiving Sign-Out Receiving patient FROM: Martell Rodgers - Discharge Plan Condition: Stable Disposition: HOME Patient Education Materials: Acetaminophen (By mouth), Flank Pain (ED) Referrals: [facility] PHYSICIAN REFERRAL [Outside] - 06/23/17 Vijay Cedillo MD [Primary Care Provider] - If Needed Additional Instructions: I recommend Tylenol for the pain. Follow up with your OB tomorrow, 06/23/17. I have given you a referral to the [facility] OB if you would like. Return to the emergency department for any new or worsening symptoms. The documentation as recorded by the Yee velasquez Thomas accurately reflects the service I personally performed and the decisions made by me, Dudley Fine MD.
[2017-06-23 00:26] VITALS: BP 113/53
--- NOTE | 2017-06-23 07:15 | RAD ---
INDICATION: Left flank pain. COMPARISON: Comparison is made with a prior renal ultrasound from August 08, 2015. TECHNIQUE: Multiple real-time images of the kidneys were obtained. FINDINGS: The kidneys are normal in size shape and echogenicity. The right kidney measured 11.3 x 6.1 x 5.8 cm and the left kidney measured 12.3 x 4.9 x 5.5 cm. There is moderate right hydronephrosis. There are several small areas of increased echogenicity in both kidneys suggestive of small renal calculi. There are bilateral ureteral vesicle jets. IMPRESSION: 1. MODERATE RIGHT HYDRONEPHROSIS. 2. SEVERAL SMALL BILATERAL RENAL CALCULI
== END 2017-06-23 00:18 | disposition home or self-care (01) ==
LOC: ED 20:35
DX: R10.84 Generalized abdominal pain (principal)
CPT/HCPCS: 36415; 76775; 80053; 81003; 81015; 85027; 87086; 99283

== ENCOUNTER 2017-07-17 10:53 | Emergency (ER) | payer BC ==
--- NOTE | 2017-07-17 17:34 | UC ---
Los Patino Stephanie, scribed for Jaya Kent MD on 07/17/17 at 1150 . Throat Pain/Nasal Aamir HPI - HPI Summary HPI Summary: The pt is a 32 y/o F presenting to with c/o difficulty swallowing that began yesterday. Symptoms include nausea, difficulty breathing and chest tightness. The pt denies throat soreness, fever, abd cramping and vaginal discharge. She denies exposure to new chemicals. The pt reports having to cut her food into small portions to be able to eat it. She reports it took her a long time to consume a meal. 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 The pt is . [facility] 02/09/2017. 22 weeks gestation. 2, Para 0. Hx of spontaneous at 7 weeks with first . She became lactose intolerant with this . She reports normal movement. - History of Current Complaint Chief Complaint: UCRespiratory Stated Complaint: SORE THROAT Time Seen by Provider: 07/17/17 11:26 Hx Obtained From: Patient Hx Last Menstrual Period: 02/09/2017 ?: Yes Onset/Duration: Sudden Onset, Lasting Hours - 1, Still Present Associated Signs & Symptoms: Positive: Other - difficulty breathing, chest tightness - Allergies/Home Medications Allergies/Adverse Reactions: Allergies Allergy/AdvReac Type Severity Reaction Status Date / Time lactose Allergy See Comment Verified 07/17/17 11:19 DUST/MITE Allergy Unknown Uncoded 07/17/17 11:32 Reaction Details PMH/Surg Hx/FS Hx/Imm Hx Endocrine History: Other Other Endocrine History: Denies diabetes Cardiovascular History: Other Other Cardiovascular History: denies HTN Respiratory History: Other Other Respiratory History: Denies asthma GI/ History: Kidney Stones - Surgical History Surgical History: Yes Surgery Procedure, Year, and Place: Stent placement. lithotripsy - Family History Known Family History: Positive: Diabetes, Other - CA. Alzheimer's. Negative: Cardiac Disease, Hypertension - Social History Occupation: Employed Full-time Lives: With Family Alcohol Use: None Alcohol Amount: 2x's weekly Substance Use Type: None Substance Use Comment - Amount & Last Used: quit recently Smoking Status (MU): Never Smoked Tobacco Type: eCigarettes Amount Used/How Often: OVER 1.5 YEARS AGO - ECIGARETTES Have You Smoked in the Last Year: No Review of Systems Constitutional: Negative Skin: Negative Eyes: Negative ENT: Other - difficulty swallowing Respiratory: Other - difficulty breathing Cardiovascular: Other - chest tightness Gastrointestinal: Nausea Genitourinary: Negative Motor: Negative Neurovascular: Negative Musculoskeletal: Negative Neurological: Negative Psychological: Negative Is Patient Immunocompromised?: No All Other Systems Reviewed And Are Negative: Yes Physical Exam - Summary Physical Exam Summary: VITAL SIGNS: Reviewed. GENERAL: Patient is a well developed and nourished F who is lying comfortable in the stretcher. Patient is not in any acute respiratory distress. HEAD AND FACE: Normocephalic EYES: PERRLA, EOMI x 2. EARS: Hearing grossly intact. MOUTH: Oropharynx within normal limits. NECK: Supple, trachea is midline, no adenopathy, no JVD, no carotid bruit. CHEST: Symmetric, no tenderness at palpation LUNGS: Clear to auscultation bilaterally. No wheezing or crackles. CVS: Regular rate and rhythm, S1 and S2 present, no murmurs or gallops appreciated. ABDOMEN: Soft, non-tender. Bowel sounds are normal. No abdominal abnormal pulsations. EXTREMITIES: Full ROM in all major joints, no edema, no cyanosis or clubbing. NEURO: Alert and oriented x 3. No acute neurological deficits. Speech is normal and follows commands. SKIN: Dry and warm PSYCH: anxious Triage Information Reviewed: Yes Vital Signs: Initial Vital Signs Resp 16 07/17/17 11:20 Vital Signs Reviewed: Yes Throat Pain/Nasal Course/Dx - Course Course Of Treatment: The pt is a 32 y/o F presenting to with c/o difficulty swallowing that began yesterday. Symptoms include nausea, difficulty breathing and chest tightness. The pt denies throat soreness. She denies exposure to new chemicals. 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 The pt is . [facility] 02/09/2017. 22 weeks gestation. 2, Para 0. Hx of spontaneous at 7 weeks with first . She became lactose intolerant with this . She reports normal movement. The pt reports having to cut her food into small portions to be able to eat it. She reports it took her a long time to consume a meal. The pt states she had difficulty swallowing fluids this morning. physician is sending the pt to the ER however, she refuses ambulance. Her will drive her to the ER. The pt is hemodynamically stable, alert and oriented x3. - Differential Dx/Diagnosis Differential Diagnosis/HQI/PQRI: Laryngitis, Pharyngitis, Tonsillitis Provider Diagnoses: dysphagia. anxiety Discharge - Sign-Out/Discharge Documenting (check all that apply): Discharge - Discharge Plan Condition: Stable Disposition: HOME Patient Education Materials: Dysphagia (ED) Referrals: Vijay Cedillo MD [Primary Care Provider] - Additional Instructions: Patient discharged to the ED, She declined ambulance. - Billing Disposition and Condition Condition: STABLE Disposition: HOME The documentation as recorded by the Los velasquez Stephanie accurately reflects the service I personally performed and the decisions made by , Jaya Kent MD.
== END 2017-07-17 11:58 | disposition home or self-care (01) ==
LOC: UCEAST 10:53
DX: O26.892 Other specified pregnancy related conditions, second trimester (principal); R13.10 Dysphagia, unspecified; F41.9 Anxiety disorder, unspecified; R07.89 Other chest pain; Z3A.22 22 weeks gestation of pregnancy; Z87.442 Personal history of urinary calculi; Z87.891 Personal history of nicotine dependence
CPT/HCPCS: 99211; G0463

== ENCOUNTER 2017-07-17 12:19 | Emergency (ER) | payer BC ==
[2017-07-17 17:06] VITALS: BP 110/65
--- NOTE | 2017-07-17 17:38 | ED ---
Dang Patino Jason, scribed for Eliezer Patel MD on 07/17/17 at 1443 . Throat Pain/Nasal Congestion - HPI Summary HPI Summary: This patient is a 32 year old F presenting to [facility] accompanied by male auto clutch specialist with a chief complaint of throat symptoms since 1 day ago. It feels like theres something lodged in my throat. Its not pain, theres just something in my throat and it never goes away. Viola been having indigestion for a while and basically everything I heat comes back up because Im . Everything I eat it feels like nothing is going completely down. The patient rates the pain 0/10 in severity. Symptoms aggravated by nothing. Symptoms alleviated by nothing. Patient reports difficulty swallowing. Patient denies abdominal pain, genitourinary symptoms and gastrointestinal symptoms. Patient is 22.5 weeks into . Patient has a slight umbilical hernia according to her OBGYN. - History of Current Complaint Chief Complaint: EDAbdPain Time Seen by Provider: 07/17/17 14:25 Hx Obtained From: Patient Onset/Duration: Gradual Onset, Still Present Associated Signs And Symptoms: Positive: Negative - abdominal pain, genitourinary symptoms and gastrointestinal symptoms - Allergies/Home Medications Allergies/Adverse Reactions: Allergies Allergy/AdvReac Type Severity Reaction Status Date / Time lactose Allergy See Comment Verified 07/17/17 11:19 DUST/MITE Allergy Unknown Uncoded 07/17/17 11:32 Reaction Details PMH/Surg Hx/FS Hx/Imm Hx Previously Healthy: No Endocrine/Hematology History: Denies: Hx Diabetes, Hx Thyroid Disease Cardiovascular History: Denies: Hx Hypertension Respiratory History: Denies: Hx Asthma, Hx Chronic Obstructive Pulmonary Disease (COPD) GI History: Denies: Hx Ulcer History: Reports: Hx Kidney Stones Musculoskeletal History: Reports: Hx Scoliosis Psychiatric History: Reports: Hx Depression - Surgical History Surgery Procedure, Year, and Place: Stent placement. lithotripsy - Immunization History Date of Influenza Vaccine: fall 2016 Infectious Disease History: No Infectious Disease History: Reports: History Other Infectious Disease - [place], lyme, HPV Denies: Hx Clostridium Difficile, Hx Hepatitis, Hx Human Immunodeficiency Virus (HIV), Hx of Known/Suspected MRSA, Hx Shingles, Hx Tuberculosis, Hx Known/ Suspected VRE, Hx Known/Suspected VRSA, Traveled Outside the [place] in Last 30 Days - Family History Known Family History: Positive: None, Diabetes, Other - CA. Alzheimer's. Negative: Cardiac Disease, Hypertension - Social History Alcohol Use: None Alcohol Amount: 2x's weekly Hx Substance Use: Yes Substance Use Type: Reports: Marijuana Substance Use Comment - Amount & Last Used: quit recently Hx Tobacco Use: No Smoking Status (MU): Current Some Day Smoker Type: eCigarettes Amount Used/How Often: OVER 1.5 YEARS AGO - ECIGARETTES Have You Smoked in the Last Year: No Review of Systems Positive: Other - difficulty swallowing" Gastrointestinal: Negative - general symptoms Positive: Other - difficultyswalling. Negative: Abdominal Pain Positive: no symptoms reported All Other Systems Reviewed And Are Negative: Yes Physical Exam - Summary Physical Exam Summary: General: well-appearing, no pain distress Skin: warm, color reflects adequate perfusion, dry Head: normal Eyes: EOMI, RIGO ENT: normal Neck: supple, nontender Respiratory: CTA, breath sounds present Cardiovascular: RRR Abdomen: soft, Mild tenderness in the epigastrium. Gravid. Bowel: present Musculoskeletal: normal, strength/ROM intact Neurological: normal, sensory/motor intact, A&O x3 Psychological: affect/mood appropriate Triage Information Reviewed: Yes Vital Signs On Initial Exam: Initial Vitals Temp Pulse Resp BP Pulse Ox 97.8 F 68 18 107/75 100 07/17/17 12:30 07/17/17 12:30 07/17/17 12:30 07/17/17 12:30 07/17/17 12:30 Vital Signs Reviewed: Yes Diagnostics - Vital Signs Vital Signs Temp Pulse Resp BP Pulse Ox 07/17/17 13:40 67 100 07/17/17 12:30 97.8 F 68 18 107/75 100 - Laboratory Lab Statement: Any lab studies that have been ordered have been reviewed, and results considered in the medical decision making process. EENT Course/Dx - Course Course Of Treatment: PATIENT DOES NOT HAVE EVIDENCE OF ESOPHAGEAL OBSTRUCTION. WILL TREAT WITH ZANTAC 150MG PO BID AND CARAFATE WITH MYLANTA PNN. F/U WITH OBGYN; RETURN IF WORSE. - Diagnoses Provider Diagnoses: Throat pain, GERD (gastroesophageal reflux disease) Discharge - Sign-Out/Discharge Documenting (check all that apply): Discharge - Discharge Plan Condition: Stable Disposition: HOME Prescriptions: Ranitidine TAB (NF) [Zantac TAB (NF)] 150 mg PO BID #30 tab Sucralfate TAB* [Carafate*] 1 gm PO QID #60 tab Patient Education Materials: Gastroesophageal Reflux Disease (ED) Referrals: Vijay Cedillo MD [Primary Care Provider] - Additional Instructions: FOLLOW UP WITH YOUR OBGYN. TAKE ZANTAC 150MG TWICE A DAY. TAKE CARAFATE DIRECTED. TAKE MYLANTA DIRECTED NEEDED. RETURN TO THE EMERGENCY DEPARTMENT FOR ANY WORSENING OF YOUR CONDITION OR QUESTIONS OR CONCERNS. - Billing Disposition and Condition Condition: STABLE Disposition: HOME The documentation as recorded by the Dang velasquez Jason accurately reflects the service I personally performed and the decisions made by me, Eliezer Patel MD.
== END 2017-07-17 17:05 | disposition home or self-care (01) ==
LOC: ED 12:19
DX: O26.892 Other specified pregnancy related conditions, second trimester (principal); R07.0 Pain in throat; K21.9 Gastro-esophageal reflux disease without esophagitis; Z3A.22 22 weeks gestation of pregnancy; K42.9 Umbilical hernia without obstruction or gangrene; Z87.442 Personal history of urinary calculi; M41.9 Scoliosis, unspecified; F32.9 Major depressive disorder, single episode, unspecified; Z87.891 Personal history of nicotine dependence
CPT/HCPCS: 99282

== ENCOUNTER 2017-08-31 16:17 | Emergency (ER) | payer BC, OTHER ==
--- NOTE | 2017-08-31 17:28 | RAD ---
HISTORY: Bilateral lower extremity swelling, COMPARISONS: None relevant TECHNIQUE: Multiple transverse and longitudinal ultrasound images were obtained of the left lower extremity from the level of the common femoral vein inferiorly through to the infrapopliteal veins using grayscale, color Doppler, and spectral Doppler imaging with and without compression and with augmentation. Comparison images were obtained of the contralateral common femoral vein. FINDINGS: VEINS: The venous system of the left lower extremity is compressible throughout its course, with normal flow on color Doppler imaging and normal response to augmentation on spectral Doppler imaging. SOFT TISSUES: Unremarkable. OTHER FINDINGS: None. IMPRESSION: NO LEFT LOWER EXTREMITY DEEP VEIN THROMBOSIS
--- NOTE | 2017-08-31 18:17 | ED ---
Lower Extremity - HPI Summary HPI Summary: 29 week patient here with bilateral lower extremity swelling and pain past few days. She admits she went to a graduation over the weekend and was standing quite a bit which most likely triggered her symptoms initially. She continues to have some swelling although it's gotten better. She's here today as her left lower extremity is more painful than her right an OB was concerned about a DVT here. She also admits to a history of scoliosis and has back and leg pain if she stands for too long at work. She also gets leg pain with tingling if she sits too long especially on the toilet. She has been seen by chiropractor this helped this issue in the past however she has not been recently as a cause $35 per session. She denies fever, chills, chest pain , shortness of breath, headache, polydipsia, polyuria, polyphagia. Her vital signs are within normal limits. She was just seen by her INTERNET SALES CONSULTANT last week for gestational diabetes testing and reports this is negative. She takes vitamins and has been following w/ OBGYN in [place]. (miscarried 1st fetus at 7 weeks). - History of Current Complaint Chief Complaint: EDExtremityLower Stated Complaint: LT LEG SWELLING/29 WKS PREG Time Seen by Provider: 08/31/17 16:49 Hx Obtained From: Patient Hx Last Menstrual Period: 02/09/2017 Pain Intensity: 4 - Allergies/Home Medications Allergies/Adverse Reactions: Allergies Allergy/AdvReac Type Severity Reaction Status Date / Time lactose Allergy See Comment Verified 08/31/17 16:23 DUST/MITE Allergy Unknown Uncoded 08/31/17 16:23 Reaction Details PMH/Surg Hx/FS Hx/Imm Hx Previously Healthy: Yes Endocrine/Hematology History: Denies: Hx Anticoagulant Therapy, Hx Blood Disorders, Hx Blood Transfusions, Hx Bone Marrow Disease, Hx Diabetes, Hx Systemic Lupus Erythematosus, Hx Thyroid Disease, Hx Anemia, Hx Unexplained Bleeding, Hx Coagulopothy Cardiovascular History: Denies: Hx Hypertension Respiratory History: Denies: Hx Asthma, Hx Chronic Obstructive Pulmonary Disease (COPD) GI History: Denies: Hx Ulcer History: Reports: Hx Kidney Stones Musculoskeletal History: Reports: Hx Scoliosis Psychiatric History: Reports: Hx Depression - Surgical History Surgery Procedure, Year, and Place: Stent placement. lithotripsy - Immunization History Date of Influenza Vaccine: fall 2016 Infectious Disease History: No Infectious Disease History: Reports: History Other Infectious Disease - [place], lyme, HPV Denies: Hx Clostridium Difficile, Hx Hepatitis, Hx Human Immunodeficiency Virus (HIV), Hx of Known/Suspected MRSA, Hx Shingles, Hx Tuberculosis, Hx Known/ Suspected VRE, Hx Known/Suspected VRSA, Traveled Outside the [place] in Last 30 Days - Family History Known Family History: Positive: Diabetes, Other - CA. Alzheimer's. Negative: Cardiac Disease, Hypertension - Social History Occupation: Employed Full-time - [employer] Alcohol Use: None - while Alcohol Amount: 2x's weekly Hx Substance Use: Yes Substance Use Type: Reports: None Substance Use Comment - Amount & Last Used: quit recently Hx Tobacco Use: No Smoking Status (MU): Former Smoker Type: eCigarettes Amount Used/How Often: OVER 1.5 YEARS AGO - ECIGARETTES Have You Smoked in the Last Year: No Review of Systems Constitutional: Negative Negative: Fever, Chills, Fatigue Eyes: Negative ENT: Negative Cardiovascular: Negative Respiratory: Negative Gastrointestinal: Negative Genitourinary: Negative Musculoskeletal: Other - leg pain - Lt heel, ankle, anterior tibialis Positive: Edema - pt reports but none observed. Negative: Decreased ROM Positive: Paresthesia. Negative: Headache, Weakness, Numbness Psychological: Normal All Other Systems Reviewed And Are Negative: Yes Physical Exam Triage Information Reviewed: Yes Vital Signs On Initial Exam: Initial Vitals Temp Pulse Resp BP Pulse Ox 98 F 82 16 116/87 99 08/31/17 16:21 08/31/17 16:21 08/31/17 16:21 08/31/17 16:21 08/31/17 16:21 Vital Signs Reviewed: Yes Appearance: Positive: Well-Appearing, No Pain Distress, Well-Nourished Skin: Positive: Warm, Skin Color Reflects Adequate Perfusion, Dry - no erythema , no edema of LE's Head/Face: Positive: Normal Head/Face Inspection Eyes: Positive: Normal, EOMI ENT: Positive: Normal ENT inspection, Hearing grossly normal Respiratory/Lung Sounds: Positive: Breath Sounds Present Cardiovascular: Positive: Pulses are Symmetrical in both Upper and Lower Extremities. Negative: Leg Edema Left, Leg Edema Right Abdomen Description: Positive: Other: - ab Musculoskeletal: Positive: Strength/ROM Intact, Pain @ - mid thoracic para spinal tissue (area of scoliosis) TTP and SI joint TTP on Lt Neurological: Positive: Normal, Sensory/Motor Intact, Alert, Oriented to Person Place, Time, CN Intact II-III Psychiatric: Positive: Normal Diagnostics - Vital Signs Vital Signs Temp Pulse Resp BP Pulse Ox 08/31/17 16:21 98 F 82 16 116/87 99 - Laboratory Lab Statement: Any lab studies that have been ordered have been reviewed, and results considered in the medical decision making process. Lower Extremity Course/Dx - Course Course Of Treatment: U/S: no DVT. Suspect swelling was from prolonged standing in heat at graduation along w/ scoliosis triggering LE pain. Advised rest with legs up for next day and f/u w/ OBGYN Wednesday (appt already scheduled). If worse , return to ED. - Diagnoses Provider Diagnoses: Left leg pain, Discharge - Sign-Out/Discharge Documenting (check all that apply): Discharge/Admit/Transfer - Discharge Plan Condition: Stable Disposition: HOME Patient Education Materials: Lumbar Radiculopathy (ED), (ED) Forms: *Work Release Referrals: Vijay Cedillo MD [Primary Care Provider] - Additional Instructions: Suspect swelling was from prolonged standing in heat at graduation. Suspect left leg pain is from scoliosis. Advise rest with legs up for next day and follow w/ OBGYN Wednesday (appt already scheduled). You may also consult with your pre- chiropractor for pain relief as well as trying heat/ice, tylenol. *If worse or you develop fever, chills, nausea, vomiting, chest pain, headache, neck stiffness, shortness of breath, return to ED. - Billing Disposition and Condition Condition: STABLE Disposition: HOME
[2017-08-31 19:03] VITALS: BP 127/77
== END 2017-08-31 19:02 | disposition home or self-care (01) ==
LOC: ED 16:17
DX: O26.93 Pregnancy related conditions, unspecified, third trimester (principal); M79.662 Pain in left lower leg; Z3A.29 29 weeks gestation of pregnancy; Z87.891 Personal history of nicotine dependence
CPT/HCPCS: 99282

== ENCOUNTER 2017-10-27 18:42 | Emergency (ER) | payer BC, OTHER ==
[2017-10-27] MEDS ORDERED: Metoclopramide IV* 5 MG/ML 2 ML VIAL IV ONE (20:00)
[2017-10-27] MEDS ORDERED: Morphine VIAL* 10 MG/ML 1 ML VIAL IV ONE (20:00)
[2017-10-27] MEDS ORDERED: diPHENhydraMINE IV* 50 MG/ML 1 ml VIAL (BENADRYL) IV ONE (20:00)
--- NOTE | 2017-10-27 20:12 | ED ---
Headache - HPI Summary HPI Summary: This is ron Gold documenting for attending Dr. Babatunde Simons This patient is a 32 year old F presenting to [facility] accompanied by her with a chief complaint of headache since 1600 located in the upper right parietal region. Pt endorses nausea, photophobia, visual changes bilaterally involving white stars, which worsened, along with worsening GAUTAM, starting at 1700 , causing inability to focus, with her visual field shimmering and shaking. Pt notes she lay down for 45 minutes with cold paper towel on her head which alleviated sx. No PMHx migraines. Pt is 37 weeks , GPA = 2,0,1. - History Of Current Complaint Chief Complaint: EDHeadache Stated Complaint: VISUAL DISTR/WITH HEADACHE Time Seen by Provider: 10/27/17 19:30 Hx Obtained From: Patient Hx Last Menstrual Period: 02/09/2017 Onset/Duration: Sudden Onset, Started hours ago, Still Present, Worse Since - 1700 Initially Headache Was: Moderate Currently Pain Is: Severe Timing: Constant Character: Unable To Describe Location of Headache: Parietal - right sided Aggravating Factor: Bright Lights Allevating Factors: Rest, Other (Noted In Comments) - cold paper towel on head Associated Signs And Symptoms: Nausea, Visual Changes - white stars, shimmering - Allergies/Home Medications Allergies/Adverse Reactions: Allergies Allergy/AdvReac Type Severity Reaction Status Date / Time lactose Allergy See Comment Verified 10/27/17 18:49 DUST/MITE Allergy Unknown Uncoded 10/27/17 18:49 Reaction Details Home Medications: Home Medications Calcium Carbonate/Vitamin D3 [Calcium 500 + Vit D Caplet] 1 tab PO DAILY [History Confirmed 10/27/17] Ranitidine TAB (NF) [Zantac TAB (NF)] 150 mg PO BID 10/27/17 [History Confirmed 10/27/17] PMH/Surg Hx/FS Hx/Imm Hx Endocrine/Hematology History: Denies: Hx Anticoagulant Therapy, Hx Blood Disorders, Hx Blood Transfusions, Hx Bone Marrow Disease, Hx Diabetes, Hx Systemic Lupus Erythematosus, Hx Thyroid Disease, Hx Anemia, Hx Unexplained Bleeding Cardiovascular History: Denies: Hx Hypertension Respiratory History: Denies: Hx Asthma, Hx Chronic Obstructive Pulmonary Disease (COPD) GI History: Denies: Hx Ulcer History: Reports: Hx Kidney Stones Musculoskeletal History: Reports: Hx Scoliosis Neurological History: Denies: Hx Migraine Psychiatric History: Reports: Hx Depression - Surgical History Surgery Procedure, Year, and Place: Stent placement. lithotripsy - Immunization History Date of Influenza Vaccine: fall 2016 Infectious Disease History: No Infectious Disease History: Reports: History Other Infectious Disease - [place], lyme, HPV Denies: Hx Clostridium Difficile, Hx Hepatitis, Hx Human Immunodeficiency Virus (HIV), Hx of Known/Suspected MRSA, Hx Shingles, Hx Tuberculosis, Hx Known/ Suspected VRE, Hx Known/Suspected VRSA, Traveled Outside the [place] in Last 30 Days - Family History Known Family History: Positive: Diabetes, Other - [place]. Alzheimer's. Negative: Cardiac Disease, Hypertension - Social History Alcohol Use: None - while Alcohol Amount: 2x's weekly Hx Substance Use: Yes Substance Use Type: Reports: None Substance Use Comment - Amount & Last Used: quit recently Hx Tobacco Use: No Smoking Status (MU): Former Smoker Type: eCigarettes Amount Used/How Often: OVER 1.5 YEARS AGO - ECIGARETTES Have You Smoked in the Last Year: No Review of Systems Negative: Fever Positive: Photophobia, Other - white stars, shimmering Positive: Nausea Positive: other - 37 weeks Positive: Headache All Other Systems Reviewed And Are Negative: Yes Physical Exam - Summary Physical Exam Summary: VITAL SIGNS: Reviewed. GENERAL: Patient is a well-developed and nourished female who is lying comfortable in the stretcher. Patient is not in any acute respiratory distress. HEAD AND FACE: No signs of trauma. No ecchymosis, hematomas or skull depressions. No sinus tenderness. EYES: PERRLA, EOMI x 2, No injected conjunctiva, no nystagmus. EARS: Hearing grossly intact. Ear canals and tympanic membranes are within normal limits. MOUTH: Oropharynx within normal limits. NECK: Supple, trachea is midline, no adenopathy, no JVD, no carotid bruit, no c- spine tenderness, neck with full ROM. CHEST: Symmetric, no tenderness at palpation LUNGS: Clear to auscultation bilaterally. No wheezing or crackles. CVS: Regular rate and rhythm, S1 and S2 present, no murmurs or gallops appreciated. ABDOMEN: Soft, non-tender. No signs of distention. No rebound no guarding, and no masses palpated. Bowel sounds are normal. Fundal level 36 weeks. EXTREMITIES: FROM in all major joints, no edema, no cyanosis or clubbing. NEURO: Alert and oriented x 3. No acute neurological deficits. Speech is normal and follows commands. SKIN: Dry and warm Triage Information Reviewed: Yes Vital Signs On Initial Exam: Initial Vitals Temp Pulse Resp BP Pulse Ox 96.8 F 66 16 149/82 98 10/27/17 18:44 10/27/17 18:44 10/27/17 18:44 10/27/17 18:44 10/27/17 18:44 Vital Signs Reviewed: Yes Diagnostics - Vital Signs Vital Signs Temp Pulse Resp BP Pulse Ox 10/27/17 18:44 96.8 F 66 16 149/82 98 - Laboratory Result Diagrams: 10/27/17 20:35 10/27/17 20:35 Lab Statement: Any lab studies that have been ordered have been reviewed, and results considered in the medical decision making process. Re-Evaluation - Re-Evaluation First Eval Re-Evaluation Time: 21:30 Change: Improved Comment: pt feels better, BP down to 122/76, GAUTAM resolved, reviewed lab results with pt. Headache Course/Dx - Course Course Of Treatment: A 32-year-old F presents to the ED with a CC of GAUTAM since 1600. (+) visual changes, 37 weeks, photophobia, nausea. No PMHx migraines, GPA 2:0:1. An EKG reveals ___. In the ED course, pt was given benadryl, reglan, and morphine. - Diagnoses Provider Diagnoses: Headache Discharge - Sign-Out/Discharge Documenting (check all that apply): Patient Departure - discharge - Discharge Plan Condition: Stable Disposition: HOME Patient Education Materials: General Headache (ED) Referrals: Vijay Cedillo MD [Primary Care Provider] - Additional Instructions: Return to the emergency department for any new or worsening symptoms. Follow up with your CARE DIRECTOR RN doctor tomorrow. - Billing Disposition and Condition Condition: STABLE Disposition: Home
[2017-10-27 20:50] LABS: ABS Basophils 0.1 10^3/ul (0-0.2); ABS Eosinophils 0.1 10^3/ul (0-0.6); ABS Lymphocytes 2.9 10^3/ul (1.0-4.8); ABS Neutrophils 9.6 10^3/ul (1.5-7.7); ABS Nucleated RBC 0.1 10^3/ul; Eosinophil % 0.7 % (0-6); Hematocrit 41 % (35-47); Hemoglobin 14.2 g/dl (12.0-16.0); Lymphocyte % 21.1 % (25-47); Mean Corpuscular HGB Conc 35 g/dl (31-36); Mean Corpuscular Hemoglobin 31 pg (27-31); Mean Corpuscular Volume 89 fL (80-97); Mean Platelet Volume 8.8 um3 (7.4-10.4); Nucleated Red Blood Cells % 0.6; Platelet Count 218 10^3/ul (150-450); Red Blood Count 4.64 10^6/ul (4.00-5.40); Red Cell Distribution Width 14 % (10.5-15); White Blood Count 13.6 10^3/ul (3.5-10.8)
[2017-10-27 21:05] LABS: INR 0.86 (0.77-1.02)
[2017-10-27 21:13] LABS: Urine Appearance Clear; Urine Blood Negative (Negative); Urine Color Straw; Urine Ketones Negative (Negative); Urine Protein Negative (Negative); Urine Specific Gravity 1.005 (1.010-1.030); Urine Urobilinogen Negative (Negative)
[2017-10-27 21:54] VITALS: BP 108/81
== END 2017-10-27 21:54 | disposition home or self-care (01) ==
LOC: ED 18:42
DX: H53.149 Visual discomfort, unspecified (principal); R11.0 Nausea; R51 Headache; Z3A.37 37 weeks gestation of pregnancy; Z87.891 Personal history of nicotine dependence; Z87.442 Personal history of urinary calculi
CPT/HCPCS: 36415; 80053; 81003; 85025; 85610; 85730; 96374; 96375; 99282; J1200; J2765

== ENCOUNTER 2018-02-10 20:14 | Emergency (ER) | payer BC, OTHER ==
[2018-02-10 20:21] VITALS: BP 123/56
--- NOTE | 2018-02-10 21:20 | UC ---
Complaint Female HPI - HPI Summary HPI Summary: Started w/ worsening abd pain x 2 days. It's invumbilical area but worse at RLQ. Had C section 12 wks. ago. breast feeding. she thought it was a hernia from her recent . - History Of Current Complaint Chief Complaint: UCAbdominalPain Stated Complaint: ABD PAIN Time Seen by Provider: 02/10/18 20:55 Hx Obtained From: Patient Hx Last Menstrual Period: 02/09/17 ( & TAKING PROGESTERONE) ?: No - just had baby 12 wks ago Onset/Duration: Sudden Onset Timing: Constant Severity Currently: Mild Pain Intensity: 2 Pain Scale Used: 0-10 Numeric Radiates to: RLQ Character: Sharp, Burning Aggravating Factor(s): Movement Alleviating Factor(s): Nothing Associated Signs And Symptoms: Positive: Nausea - Allergies/Home Medications Allergies/Adverse Reactions: Allergies Allergy/AdvReac Type Severity Reaction Status Date / Time DUST/MITE Allergy Unknown Uncoded 02/10/18 20:21 Reaction Details Home Medications: Home Medications Ibuprofen TAB* [Advil TAB*] 400 mg PO ONCE PRN 02/10/18 [History Confirmed 02/10] Progesterone CAP (NF) [Prometrium (NF)] 02/10/18 [History] PMH/Surg Hx/FS Hx/Imm Hx - Additional Past Medical History Additional PMH: breast feeding Previously Healthy: Yes Other History Of: Negative For: Anticoagulant Therapy - Surgical History Surgical History: Yes Surgery Procedure, Year, and Place: Stent placement FOR KIDNEY STONES. lithotripsy. 11/2017 - Family History Known Family History: Positive: Diabetes, Other - [place]. Alzheimer's. Negative: Cardiac Disease, Hypertension - Social History Alcohol Use: None Alcohol Amount: 2x's weekly Substance Use Type: None Substance Use Comment - Amount & Last Used: quit recently Smoking Status (MU): Former Smoker Type: eCigarettes Amount Used/How Often: OVER 1.5 YEARS AGO - ECIGARETTES Have You Smoked in the Last Year: No Review of Systems All Other Systems Reviewed And Are Negative: Yes Constitutional: Positive: Negative Skin: Positive: Negative Respiratory: Positive: Negative Cardiovascular: Positive: Negative Neurological: Positive: Negative Physical Exam Triage Information Reviewed: Yes Appearance: Well-Nourished, Pain Distress Vital Signs: Initial Vital Signs Temp 97 F 02/10/18 20:16 Pulse 66 02/10/18 20:16 Resp 16 02/10/18 20:16 BP 123/56 02/10/18 20:16 Pulse Ox 100 02/10/18 20:16 Vital Signs Reviewed: Yes Respiratory Exam: Normal Cardiovascular Exam: Normal Abdomen Description: Positive: Soft, Guarding - RLQ AND PERIUMBILICAL AREA, Peritoneal Signs. Negative: CVA Tenderness (R), CVA Tenderness (L) Neurological: Positive: Alert Skin Exam: Normal Complaint Female Dx - Course Course Of Treatment: WORSENING RLQ PAIN AND PERIUMBILICAL PAIN W/ SIGNIFICANT GUARDING AND TENDERNESS IN THOSE AREAS. VITALS GOOD. NEED TO R/O APPENDICITIS AND ADVISED TO GO TO ED, SHE PREFERS DRIVING HERSELF THAN AMBULANCE. OF NOTE SHE IS POST OP C SECTION 12 WKS AND CURRENTLY . I EXPLAINED I DOUBT THIS IS A HERNIA IT DOES NOT USUALLY COME W/ THIS AMOUNT OF PAIN. - Differential Dx/Diagnosis Differential Diagnosis/HQI/PQRI: Appendicitis, Other - DIVERTIVCULITIS Provider Diagnoses: RLQ PAIN, PERIUMBILICAL PAIN. Discharge - Sign-Out/Discharge Documenting (check all that apply): Patient Departure All imaging exams completed and their final reports reviewed: No Studies - Discharge Plan Condition: Good Disposition: HOME-RECOMMEND TO ED Patient Education Materials: Acute Abdominal Pain (ED) Referrals: No Primary Care Phys,NOPCP [Primary Care Provider] - Additional Instructions: Please go to emergency room to rule out appendicitis and to get a cat scan. - Billing Disposition and Condition Condition: GOOD Disposition: Home-Recommend to ED
== END 2018-02-10 21:40 | disposition home health service (06) ==
LOC: UCEAST 20:14
DX: R10.31 Right lower quadrant pain (principal); R10.33 Periumbilical pain; R11.0 Nausea; Z91.048 Other nonmedicinal substance allergy status; Z87.891 Personal history of nicotine dependence
CPT/HCPCS: 81003; 84702; 87086; 99212; G0463

== ENCOUNTER 2018-02-10 22:45 | Emergency (ER) | payer BC ==
[2018-02-10] MEDS ORDERED: NS 0.9% 1000 ML* 1,000 ML IV ONE (23:13)
[2018-02-10] MEDS ORDERED: Ketorolac INJ* 30 MG/ML 1 ML VIAL IV PUSH ONE (23:14)
--- NOTE | 2018-02-10 23:16 | ED ---
GI/ HPI - HPI Summary HPI Summary: 33-year-old female presents with abdominal pain for the past couple days. She states that it is greatest periumbilically and located in her right lower quadrant. She states it hurts worse when she tries to lay down. She states that it initially felt similar to her umbilical hernia she had in the past. She states that the pain is progressively worse. She has history of kidney stones but states that this feels different. No urinary symptoms or blood in her urine. No abnormal vaginal discharge. No fevers. No nausea vomiting diarrhea or constipation. She had a 12 weeks ago and is currently breast feeding. - History of Current Complaint Chief Complaint: EDAbdPain Time Seen by Provider: 02/10/18 23:02 Stated Complaint: ABD PAIN Hx Last Menstrual Period: 02/09/17 ( & TAKING PROGESTERONE) Pain Intensity: 4 - Allergy/Home Medications Allergies/Adverse Reactions: Allergies Allergy/AdvReac Type Severity Reaction Status Date / Time DUST/MITE Allergy Unknown Uncoded 02/10/18 22:53 Reaction Details PMH/Surg Hx/FS Hx/Imm Hx Endocrine/Hematology History: Denies: Hx Anticoagulant Therapy, Hx Blood Disorders, Hx Blood Transfusions, Hx Bone Marrow Disease, Hx Diabetes, Hx Systemic Lupus Erythematosus, Hx Thyroid Disease, Hx Anemia, Hx Unexplained Bleeding Cardiovascular History: Denies: Hx Hypertension Respiratory History: Denies: Hx Asthma, Hx Chronic Obstructive Pulmonary Disease (COPD) GI History: Denies: Hx Ulcer History: Reports: Hx Kidney Stones Musculoskeletal History: Reports: Hx Scoliosis Neurological History: Denies: Hx Migraine Psychiatric History: Reports: Hx Depression - Surgical History Surgery Procedure, Year, and Place: Stent placement FOR KIDNEY STONES. lithotripsy. 11/2017 - Immunization History Date of Influenza Vaccine: fall 2016 Infectious Disease History: No Infectious Disease History: Reports: History Other Infectious Disease - [place], lyme, HPV Denies: Hx Clostridium Difficile, Hx Hepatitis, Hx Human Immunodeficiency Virus (HIV), Hx of Known/Suspected MRSA, Hx Shingles, Hx Tuberculosis, Hx Known/ Suspected VRE, Hx Known/Suspected VRSA, Traveled Outside the [place] in Last 30 Days - Family History Known Family History: Positive: Diabetes, Other - CA. Alzheimer's. Negative: Cardiac Disease, Hypertension - Social History Alcohol Use: None Alcohol Amount: 2x's weekly Hx Substance Use: Yes Substance Use Type: Reports: None Substance Use Comment - Amount & Last Used: quit recently Hx Tobacco Use: No Smoking Status (MU): Former Smoker Type: eCigarettes Amount Used/How Often: OVER 1.5 YEARS AGO - ECIGARETTES Have You Smoked in the Last Year: No Review of Systems Negative: Fever Negative: Chest Pain Negative: Shortness Of Breath Positive: Abdominal Pain. Negative: Vomiting, Diarrhea, Nausea All Other Systems Reviewed And Are Negative: Yes Physical Exam Triage Information Reviewed: Yes Vital Signs On Initial Exam: Initial Vitals Temp Pulse Resp BP Pulse Ox 97.3 F 72 16 108/91 97 02/10/18 22:45 02/10/18 22:45 02/10/18 22:45 02/10/18 22:45 02/10/18 22:45 Vital Signs Reviewed: Yes Appearance: Positive: Well-Appearing Skin: Positive: Warm, Dry Head/Face: Positive: Normal Head/Face Inspection Eyes: Positive: Normal, Conjunctiva Clear ENT: Positive: Pharynx normal Respiratory/Lung Sounds: Positive: Clear to Auscultation, Breath Sounds Present Cardiovascular: Positive: Normal, RRR Abdomen Description: Positive: Soft, Other: - tenderness RLQ, pos oburator, umblicial hernia present without erythema Bowel Sounds: Positive: Present Musculoskeletal: Positive: Normal Neurological: Positive: Normal Psychiatric: Positive: Normal Diagnostics - Vital Signs Vital Signs Temp Pulse Resp BP Pulse Ox 02/10/18 22:45 97.3 F 72 16 108/91 97 - Laboratory Result Diagrams: 02/10/18 23:26 02/10/18 23:26 Lab Statement: Any lab studies that have been ordered have been reviewed, and results considered in the medical decision making process. - CT abd CT Interpretation Completed By: Radiologist Summary of CT Findings: IMPRESSION: 1. The appendix is unremarkable. 2. No acute CT pathology of the abdomen or pelvis. - Ultrasound No standard instances Ultrasound Interpretation Completed By: Radiologist Summary of Ultrasound Findings: normal Re-Evaluation - Re-Evaluation First Eval Re-Evaluation Time: 01:15 Change: Improved Comment: currently sleeping GIGU Course/Dx - Course Course Of Treatment: 33-year-old female presents with abdominal pain for the past couple days. She states that it is greatest periumbilically and located in her right lower quadrant. She states it hurts worse when she tries to lay down. She states that it initially felt similar to her umbilical hernia she had in the past. She states that the pain is progressively worse. She has history of kidney stones but states that this feels different. No urinary symptoms or blood in her urine. No abnormal vaginal discharge. No fevers. No nausea vomiting diarrhea or constipation. She had a 12 weeks ago and is currently breast feeding. on exam extremely tenderness in RLQ. guarding present. wbc normal. urine likely contaminate. crp normal. transvaginal u/s normal. with extreme amount of pain got CT. CT shows no acute findings. discussed results with patient. told if no improvement to follow up with primary or care connections. patient understand and agrees with plan. - Diagnoses Differential Diagnoses - Female: Appendicitis, Ovarian Cyst, Urinary Tract Infection, Ureteral Calculi Provider Diagnoses: Abdominal pain Discharge - Sign-Out/Discharge Documenting (check all that apply): Patient Departure - Discharge Plan Condition: Good Disposition: HOME Patient Education Materials: Acute Abdominal Pain (ED) Referrals: [facility] [Outside] Additional Instructions: avoid heavy lifting follow up with lukasz shukla take tyenlol or ibuprofen every 6 hours for pain Return to ED if develop any new or worsening symptoms - Billing Disposition and Condition Condition: GOOD Disposition: Home
[2018-02-10 23:36] LABS: ABS Basophils 0.1 10^3/ul (0-0.2); ABS Eosinophils 0.3 10^3/ul (0-0.6); ABS Lymphocytes 3.9 10^3/ul (1.0-4.8); ABS Monocytes 0.8 10^3/ul (0-0.8); ABS Neutrophils 4.8 10^3/ul (1.5-7.7); ABS Nucleated RBC 0 10^3/ul; Eosinophil % 3.3 % (0-6); Hematocrit 44 % (35-47); Hemoglobin 14.8 g/dl (12.0-16.0); Lymphocyte % 39.7 % (25-47); Mean Corpuscular HGB Conc 34 g/dl (31-36); Mean Corpuscular Hemoglobin 29 pg (27-31); Mean Corpuscular Volume 85 fL (80-97); Mean Platelet Volume 7.6 fL (7.4-10.4); Nucleated Red Blood Cells % 0.1; Platelet Count 296 10^3/ul (150-450); Red Blood Count 5.18 10^6/ul (4.00-5.40); Red Cell Distribution Width 13 % (10.5-15); White Blood Count 9.9 10^3/ul (3.5-10.8)
[2018-02-10 23:41] LABS: Urine Appearance Clear; Urine Blood Negative (Negative); Urine Color Straw; Urine Ketones Negative (Negative); Urine Protein Negative (Negative); Urine Red Blood Cell Absent (Absent); Urine Specific Gravity 1.004 (1.010-1.030); Urine Urobilinogen Negative (Negative); Urine White Blood Cell Trace(0-5/hpf) (Absent)
[2018-02-11] MEDS ORDERED: Iohexol 300* (CONTRAST) 10 ML SDV IV ONE (01:08)
[2018-02-11 03:08] VITALS: BP 118/73
== END 2018-02-11 03:08 | disposition home or self-care (01) ==
LOC: ED 22:45
DX: R10.9 Unspecified abdominal pain (principal); Z87.891 Personal history of nicotine dependence; Z87.442 Personal history of urinary calculi
CPT/HCPCS: 36415; 74177; 76830; 80053; 81003; 81015; 83690; 84702; 85025; 86140; 96361; 96374; 99283; J1885; Q9967